=== PATIENT | female | born 1970 | race Caucasian/White ===

== ENCOUNTER → 2016-05-11 | Outpatient (CLI) | payer OTHER ==
[~2016-05-11] MED LIST: ACET325T96 PO; ALBINS/ INH; ALBU1NEB10 INH; ASPI-390 PO; CETI10TA84 PO; CHOL1TAB46 PO; DEXL60CA4 PO; GLC/500 PO; GLC500; HYDR-4079 PO; LANS30CA41 PO; LISI2.5T5 PO; LYSI100010; LYSI500T34 PO; METH4PAK PO; MULTTAB58 PO; NORT75CA4 PO; NRT/50 PO; PANT1TAB48 PO; RANI150C4 PO; RANI150T3 PO; RANI300C PO; SUMA1TAB PO; TOPI200T14 PO; TRAM-10 PO; VERA240T20 PO; VNTHFA/IN INH; [UNRECOGNIZED DRUG - CODE]
--- NOTE | 2016-05-11 14:25 | MAMMOGRAPHY REPORT ---
BILATERAL DIGITAL SCREENING MAMMOGRAM TOMOSYNTHESIS WITH CAD: 05/11/2016 CLINICAL HISTORY: Routine screening. Patient has no complaints. TECHNIQUE: Breast tomosynthesis in addition to standard 2D mammography was performed. Current study was also evaluated with a Computer Aided Detection (CAD) system. COMPARISON: Comparison is made to exams dated: 05/08/2015 mammogram, 04/30/2015 mammogram, 04/21/2014 mammogram, 01/24/2013 mammogram, and 08/25/2011 mammogram - [facility]. BREAST COMPOSITION: There are scattered areas of fibroglandular density in both breasts. FINDINGS: No suspicious masses, calcifications, or areas of architectural distortion are noted in e ither breast. There has been no significant interval change compared to prior exams. IMPRESSION: ACR BI-RADS CATEGORY 1: NEGATIVE There is no mammographic evidence of malignancy. A 1 year screening mammogram is recommended. The p atient will receive written notification of the results. Approximately 10% of breast cancers are not detected with mammography. A negative mammographic repor t should not delay biopsy if a clinically suggestive mass is present. Arianna Husain M.D. /:05/11/2016 11:48:18 Ordnance Handler: Cookie EVERETT(Olivia)(Isamar)([place]), [facility] letter sent: Normal 1/2 BI-RADS Code: ACR BI-RADS Category 1: Negative
== END | disposition home or self-care (01) ==
LOC: C.MAMM 10:23
PROVIDERS: ATTEND Obstetrics & Gynecology
DX: Z12.31 Encounter for screening mammogram for malignant neoplasm of breast (principal)

== ENCOUNTER → 2016-06-15 | Outpatient (CLI) | payer OTHER ==
--- NOTE | 2016-06-15 14:57 | DIAGNOSTIC IMAGING REPORT ---
CHEST 2 VIEWS ROUTINE CLINICAL HISTORY: R05 Cough COMPARISON STUDY: 04/21/2016 FINDINGS: The bones soft tissues and hemidiaphragms are normal. The cardiomediastinal silhouette is normal. The lungs are clear. The pulmonary vasculature is normal. IMPRESSION: Negative chest. Electronically signed by: Ignacio Abreu M.D. 06/15/2016 2:56 PM Dictated Date/Time: 06/15/2016 2:55 PM
== END | disposition home or self-care (01) ==
LOC: C.RAD1850 14:44
PROVIDERS: ATTEND Internal Medicine
DX: R05 Cough (principal)

== ENCOUNTER → 2016-09-14 | Outpatient (CLI) | payer OTHER ==
[2016-09-14 15:03] LABS: ALT/SGPT 18 U/L (12-78); AST/SGOT 8 U/L (15-37); BLOOD UREA NITROGEN 16 mg/dl (7-18); BUN/CREATININE RATIO 17.3 (10-20); CALCIUM 8.6 mg/dl (8.5-10.1); CARBON DIOXIDE 23 mmol/L (21-32); CHLORIDE 112 mmol/L (98-107); GLUCOSE 92 mg/dl (70-99); HDL CHOLESTEROL 68 mg/dl; SODIUM 145 mmol/L (136-145)
[2016-09-14 15:04] LABS: CHOLESTEROL 219 mg/dl (0-200); CHOLESTEROL/HDL RATIO 3.2; LDL CHOLESTEROL CALCULATED 136 mg/dl; TRIGLYCERIDES 75 mg/dl (0-150); VERY LOW DENSITY LIPOPROT CALC 15 mg/dl
[2016-09-15 06:09] LABS: ESTIMATED AVERAGE GLUCOSE 100 mg/dl; HA1C FLAG Normal (Normal)
== END | disposition home or self-care (01) ==
LOC: C.LAB 13:23
PROVIDERS: ATTEND Internal Medicine
DX: R73.01 Impaired fasting glucose (principal); E78.5 Hyperlipidemia, unspecified; I10 Essential (primary) hypertension; E55.9 Vitamin D deficiency, unspecified

== ENCOUNTER 2016-09-28 14:14 | Observation (INO) | payer OTHER ==
[~2016-09-28] VITALS: Ht 167.6 cm; Wt 115.3 kg
[~2016-09-28 14:14] MED LIST changes: -ALBINS/ INH; -CETI10TA84 PO; -CHOL1TAB46 PO; -DEXL60CA4 PO; -GLC/500 PO; -LANS30CA41 PO; -LISI2.5T5 PO; -LYSI500T34 PO; -NORT75CA4 PO; -RANI150C4 PO; -RANI300C PO; -SUMA1TAB PO; -TRAM-10 PO; -VERA240T20 PO; -VNTHFA/IN INH
[2016-09-28] MEDS ORDERED: CHOL1TAB46 PO (14:43)
[2016-09-28] MEDS ORDERED: VERA240T20 PO (14:43)
[2016-09-28] MEDS ORDERED: VNTHFA/IN INH (14:43)
[2016-09-28] MEDS ORDERED: LANS30CA41 PO (14:43)
[2016-09-28] MEDS ORDERED: LISI2.5T5 PO (14:43)
[2016-09-28] MEDS ORDERED: CETI10TA84 PO (14:43)
[2016-09-28] MEDS ORDERED: GLC/500 PO (14:43)
[2016-09-28] MEDS ORDERED: ALBINS/ INH (14:43)
[2016-09-28] MEDS ORDERED: LYSI500T34 PO (14:43)
[2016-09-28] MEDS ORDERED: TOPI200T14 PO (14:43)
[2016-09-28] MEDS ORDERED: ASPIRIN 81 MG CHEW PO STA (15:18)
[2016-09-28] MEDS ORDERED: SODIUM CHLORIDE 0.9% 1000ML 250 ML IV STA (15:18)
[2016-09-28] MEDS ORDERED: NITROGLYCERIN 0.4 MG SL PER TAB CHARGE SL STA (15:18)
[2016-09-28] MEDS ORDERED: SODIUM CHLORIDE 0.9% 1000ML 1,000 ML IV STA (15:18)
--- NOTE | 2016-09-28 15:33 | DIAGNOSTIC IMAGING REPORT ---
CHEST ONE VIEW PORTABLE CLINICAL HISTORY: Atypical chest pain. Hypertension. COMPARISON STUDY: 06/13/2016 FINDINGS: The cardiac and mediastinal contours are normal. There is no evidence of focal pulmonary consolidation. There is no evidence of failure. No pleural effusions are visualized.[ IMPRESSION: No active disease in the chest. Electronically signed by: Winston Cooper M.D. 09/28/2016 3:32 PM Dictated Date/Time: 09/28/2016 3:31 PM
[2016-09-28 15:40] LABS: POINT OF CARE TROPONIN I < 0.030 ng/ml (0-0.045)
[2016-09-28 15:49] LABS: INR 0.9 (0.9-1.1); PARTIAL THROMBOPLASTIN RATIO 1.1; PROTHROMBIN TIME (PATIENT) 9.8 SECONDS (9.0-12.0)
[2016-09-28 15:55] LABS: BASO % 0.2 %; BASO ABS # 0.01 K/uL (0-0.2); COMPLETE YES; EOS % 1.5 %; HEMATOCRIT 42.7 % (37-47); LYMPH % 25.2 %; LYMPH ABS # 1.34 K/uL (1.2-3.4); MEAN CELL VOLUME 90.5 fL (80-100); MEAN CORPUSCULAR HEMOGLOBIN 30.3 pg (25-34); MEAN CORPUSCULAR HGB CONC 33.5 g/dl (32-36); MEAN PLATELET VOLUME 10.8 fL (7.4-10.4); MONO % 5.8 %; NEUT % 67.3 %; PLATELET COUNT 252 K/uL (130-400); RED BLOOD COUNT 4.72 M/uL (4.2-5.4); WHITE BLOOD COUNT 5.31 K/uL (4.8-10.8)
--- NOTE | 2016-09-28 16:01 | EMERGENCY ROOM VISIT NOTE ---
History Report prepared by Kisha: Michael Oakley Under the Supervision of: Dr. Obie Schuster M.D. First contact with patient: 14:40 Chief Complaint: CHEST PAIN Stated Complaint: CHEST DISCOMFORT, SWEATING, HIGH BP, N History of Present Illness The patient is a 45 year old female who presents to the Emergency Room with complaints of a persistent headache starting last night. She woke up in the middle of the night with the headache. She has a history of a migraine headache. She tried Tylenol and Excedrin without relief. About 2 hours ago, the patient had an episode of diaphoresis. She has borderline diabetes. Her blood sugar level was 117. She checked her blood pressure and it was 130s systolic and 98 to 134 diastolic. She has a history of hypertension. Last night, she missed the dose for verapamil. The patient also currently complains of mid- chest pain. She describes it to be a squeezing pain which intermittently radiates to bilateral chest. She reports some shortness of breath. She has worsening chest pain with breathing, standing up, walking, and palpation. She does not have pain with lying down. At its worst, she reports a chest pain intensity of 7-8/10. She currently rates a pain intensity of 6/10. She is unsure about lower extremity pain/swelling. She denies any recent trauma or falls. Her mother from myocardial infarction. She has family history of heart disease. The patient does not smoke cigarettes. She also currently complains of nausea but denies vomiting. She denies any recent blood in stool, or any other complaints. She is not on any blood thinners. Source of History: patient, spouse/significant other Onset: last night Position: head Timing: other (persistent) Modifying Factors (Relieving): other (Tylenol and Excedrin without relief) Associated Symptoms: + diaphoresis, + chest pain, + SOB, + nausea, No vomiting Review of Systems See HPI for pertinent positives & negatives. A total of 10 systems reviewed and were otherwise negative. Past Medical & Surgical Medical Problems: (1) Diabetes (2) Hypertension Old medical records were reviewed. Nurse's notes were reviewed and I agree with. Family History FH: heart disease Social History Smoking Status: Never Smoker Alcohol Use: occasionally Marital Status: Occupation Status: other (Housewife) Current/Historical Medications Scheduled Albuterol Hfa (Ventolin Hfa), 2-4 PUFFS INH Q6H Albuterol Sulf (Proventil 0.083% 2.5MG/3ML), 2.5 MG INH QID Cetirizine (Zyrtec), 10 MG PO HS Cholecalciferol (Vitamin D3), 5,000 UNIT PO DAILY Lansoprazole (Prevacid), 30 MG PO BID Lisinopril (Lisinopril), 2.5 MG PO DAILY Lysine Hcl (L-Lysine), 500 MG PO DAILY Metformin Hcl (Glucophage), 500 MG PO BID Multiple Vitamin (Multivitamin), 1 TAB PO DAILY Nortriptyline HCl (Nortriptyline HCl), 50 MG PO HS Ranitidine Hcl (Zantac), 150 MG PO DAILY Topiramate (Topamax), 200 MG PO BID Verapamil Sust Rel (Calan Sr Ext Rel), 240 MG PO DAILY Miscellaneous Medications Acetaminophen Tab (Tylenol), 325 MG PO Nvajpcu-Whdvrmsgdoqxa-Nttjqnta (Excedrin Migraine) Sumatriptan-Naproxen Sodium (Treximet) Allergies Coded Allergies: Sulfa Drugs (Verified Allergy, Mild, 09/28/16) TONGUE PEELS Adhesives (Verified Allergy, Unknown, ., 09/28/16) Latex (Verified Allergy, Unknown, ., 09/28/16) Metoclopramide (Verified Adverse Reaction, Unknown, HIVES, 09/28/16) arthritis symptoms Physical Exam Vital Signs Date Time Temp Pulse Resp B/P (MAP) Pulse Ox O2 Delivery O2 Flow Rate FiO2 09/28/16 16:40 92 18 133/97 98 Room Air 09/28/16 15:44 95 20 126/100 95 Room Air 09/28/16 15:19 92 09/28/16 15:10 96 Room Air 09/28/16 14:17 36.3 91 18 160/123 96 Room Air Physical Exam General: Non-ill appearing, middle-aged female, in no acute distress. HEENT: Normal cephalic atraumatic. Pupils are equal round and reactive to light. Right eye will not cross the midline which she says is baseline. Oropharynx is pink with moist mucous membranes. No swelling of the mouth lips or tongue. Neck: Supple with a midline trachea. No meningeal signs or stiffness, no JVD or bruits. No Stridor. Chest: Clear to auscultation bilaterally. No wheezes or rhonchi. No increased work of breathing. Minimal tenderness to palpation. Heart: regular rate and rhythm. Abdomen: Soft nontender, nondistended without rebound guarding or rigidity. Extremities: No cyanosis clubbing or edema. No calf tenderness or assymetry Spine/Back. Non tender to palpation. No CVA tenderness Skin: Good turgor without rashes. Neurologic exam: Cranial nerves two through 12 are intact. Motor and sensation are intact and symmetrical throughout. Medical Decision & Procedures ER Provider Diagnostic Interpretation: X-ray results as stated below per interpretation by me and the radiologist: CHEST ONE VIEW PORTABLE CLINICAL HISTORY: Atypical chest pain. Hypertension. COMPARISON STUDY: 06/13/2016 FINDINGS: The cardiac and mediastinal contours are normal. There is no evidence of focal pulmonary consolidation. There is no evidence of failure. No pleural effusions are visualized.[ IMPRESSION: No active disease in the chest. Electronically signed by: Winston Cooper M.D. 09/28/2016 3:32 PM Dictated Date/Time: 09/28/2016 3:31 PM Laboratory Results 09/28/16 15:05 Red Blood Count 4.72, Mean Corpuscular Volume 90.5, Mean Corpuscular Hemoglobin 30.3, Mean Corpuscular Hemoglobin Concent 33.5, Mean Platelet Volume 10.8, Neutrophils (%) (Auto) 67.3, Lymphocytes (%) (Auto) 25.2, Monocytes (%) (Auto) 5.8, Eosinophils (%) (Auto) 1.5, Basophils (%) (Auto) 0.2, Neutrophils # (Auto) 3.57, Lymphocytes # (Auto) 1.34, Monocytes # (Auto) 0.31, Eosinophils # (Auto) 0.08, Basophils # (Auto) 0.01 09/28/16 15:05 Test 09/28/16 00:00 09/28/16 15:05 09/28/16 15:18 09/28/16 15:21 Urine Color YELLOW Urine Appearance CLEAR (CLEAR) Urine pH 7.0 (4.5-7.5) Urine Specific [place] 1.026 (1.000-1.030) Urine Protein NEG (NEG) Urine Glucose (UA) NEG (NEG) Urine Ketones NEG (NEG) Urine Occult Blood NEG (NEG) Urine Nitrite NEG (NEG) Urine Bilirubin NEG (NEG) Urine Urobilinogen NEG (NEG) Urine Leukocyte Esterase NEG (NEG) White Blood Count 5.31 K/uL (4.8-10.8) Red Blood Count 4.72 M/uL (4.2-5.4) Hemoglobin 14.3 g/dL (12.0-16.0) Hematocrit 42.7 % (37-47) Mean Corpuscular Volume 90.5 fL (80-100) Mean Corpuscular Hemoglobin 30.3 pg (25-34) Mean Corpuscular Hemoglobin Concent 33.5 g/dl (32-36) Platelet Count 252 K/uL (130-400) Mean Platelet Volume 10.8 fL (7.4-10.4) Neutrophils (%) (Auto) 67.3 % Lymphocytes (%) (Auto) 25.2 % Monocytes (%) (Auto) 5.8 % Eosinophils (%) (Auto) 1.5 % Basophils (%) (Auto) 0.2 % Neutrophils # (Auto) 3.57 K/uL (1.4-6.5) Lymphocytes # (Auto) 1.34 K/uL (1.2-3.4) Monocytes # (Auto) 0.31 K/uL (0.11-0.59) Eosinophils # (Auto) 0.08 K/uL (0-0.5) Basophils # (Auto) 0.01 K/uL (0-0.2) RDW Standard Deviation 43.0 fL (36.4-46.3) RDW Coefficient of Variation 13.0 % (11.5-14.5) Immature Granulocyte % (Auto) 0.0 % Immature Granulocyte # (Auto) 0.00 K/uL (0.00-0.02) Prothrombin Time 9.8 SECONDS (9.0-12.0) Prothromb Time International Ratio 0.9 (0.9-1.1) Activated Partial Thromboplast Time 27.8 SECONDS (21.0-31.0) Partial Thromboplastin Ratio 1.1 Anion Gap 6.0 mmol/L (3-11) Est Creatinine Clear Calc Drug Dose 108.9 ml/min Estimated GFR () 97.3 Estimated GFR (Non- 83.9 BUN/Creatinine Ratio 13.9 (10-20) Calcium Level 8.4 mg/dl (8.5-10.1) Total Bilirubin 0.3 mg/dl (0.2-1) Direct Bilirubin < 0.1 mg/dl (0-0.2) Aspartate Amino Transf (AST/SGOT) 10 U/L (15-37) Alanine Aminotransferase (ALT/SGPT) 19 U/L (12-78) Alkaline Phosphatase 61 U/L (45-117) Total Creatine Kinase 84 U/L (26-192) Creatine Kinase MB 0.9 ng/ml (0.5-3.6) Total Protein 7.0 gm/dl (6.4-8.2) Albumin 3.7 gm/dl (3.4-5.0) Lipase 197 U/L (73-393) Creatine Kinase MB Ratio (0-3.0) Bedside D-Dimer 173 ng/mlFEU (0-450) Bedside Troponin I < 0.030 ng/ml (0-0.045) Laboratory studies as stated above per my review. Medications Administered Medications (Trade) Dose Ordered Sig/Chalo Route Start Time Stop Time Status Last Admin Dose Admin Sodium Chloride 250 ml @ 999 mls/hr Q16M STAT IV 09/28/16 15:18 09/28/16 15:33 DC 09/28/16 15:42 999 MLS/HR Sodium Chloride 1,000 ml @ 100 mls/hr Q10H STAT IV 09/28/16 15:18 09/28/16 18:58 DC 09/28/16 15:42 100 MLS/HR Aspirin (Aspirin Chew) 324 mg NOW STAT PO 09/28/16 15:18 09/28/16 15:21 DC 09/28/16 15:42 324 MG Nitroglycerin (Nitrostat Tab) 0.4 mg NOW STAT SL 09/28/16 15:18 09/28/16 15:21 DC 09/28/16 15:43 0.4 MG Morphine Sulfate (MoRPHine SULFATE INJ) 2 mg NOW STAT IV 09/28/16 16:16 09/28/16 16:17 DC 09/28/16 16:35 2 MG Ondansetron HCl (Zofran Inj) 4 mg NOW STAT IV 09/28/16 16:16 09/28/16 16:17 DC 09/28/16 16:35 4 MG ECG Indication: chest pain Rate (beats per minute): 94 Rhythm: normal sinus Findings: no acute ischemic change, no ectopy Comparison ECG Date: no prior available ED Course 1440: Past medical records reviewed. The patient was evaluated in room B07, and a complete history and physical examination were performed. 1518: Nitroglycerin 0.4 mg SL, Aspirin 324 mg PO, Sodium Chloride 1000 ml @ 100 mls/hr IV, Sodium Chloride 250 ml @ 999 mls/hr IV 1616: Zofran Inj 4 mg IV, Morphine Sulfate 2 mg IV. I reevaluated the patient. Her pain has improved but she is now having a migraine headache. I discussed the results and treatment plan with the patient. She verbalized agreement of the treatment plan. The patient will be evaluated for further management. 1640: I discussed the patient's case with Dr. Ordaz, from [facility]. Medical Decision Differential diagnosis includes but is not limited to acute coronary syndrome, arrhythmia, anxiety, hypertensive emergency, PE, electrolyte or metabolic abnormalities. Blood pressure Screening: Patient was found to have an elevated blood pressure and was admitted to the hospital and will have further treatment. Medication Reconciliation: I attest that I have personally reviewed the patient' s current medication list. This patient comes in as described above. She is placed in room B7. She comes in after having some chest pressure she also headache last night she forgot to take her blood pressure medication she has no known cardiac history however she has a strong family history as well as has hypertension and diabetes. IV access was established she was given aspirin 324 mg chewable EKG does not suggest acute cord syndrome or arrhythmia. She is no acute electrolyte or metabolic abnormalities her troponin is not elevated initially her symptoms would be atypical for PE and her d-dimer is with was within normal limits. She was found to have some moderate hypertensive it as well. She was given nitroglycerin and this seemed to help the chest pain somewhat however she started having more of a migraine. She also has some nausea and was given Zofran 4 mg IV and morphine 2 mg IV. I do think she needs to be observed to rule out cardiac disease and further treatment and evaluation. She was happy with the plan and will be admitted for these measures. Consults Time Called: 1635 Consulting Physician: Dr. Ordaz, from [facility] Returned Call: 1640 I discussed the patient's case with Dr. Ordaz, from [facility]. Impression Primary Impression: Acute coronary syndrome Additional Impressions: Precordial chest pain Headache Hypertension Scribe Attestation The scribe's documentation has been prepared under my direction and personally reviewed by me in its entirety. I confirm that the note above accurately reflects all work, treatment, procedures, and medical decision making performed by me. Departure Information Dispostion Being Evaluated By Hospitalist Referrals Pro,Brandon White M.D. (PCP) Patient Instructions My [facility] Problem Qualifiers
[2016-09-28 16:02] LABS: BLOOD UREA NITROGEN 12 mg/dl (7-18); BUN/CREATININE RATIO 13.9 (10-20); CALCIUM 8.4 mg/dl (8.5-10.1); CARBON DIOXIDE 24 mmol/L (21-32); CHLORIDE 112 mmol/L (98-107); CREATININE 0.84 mg/dl (0.60-1.20); GLUCOSE 91 mg/dl (70-99); POTASSIUM 4.3 mmol/L (3.5-5.1); SODIUM 142 mmol/L (136-145)
[2016-09-28 16:08] LABS: ALKALINE PHOSPHATASE 61 U/L (45-117); ALT/SGPT 19 U/L (12-78); AST/SGOT 10 U/L (15-37); CKMB/CK RATIO 1.1 (0-3.0)
[2016-09-28] MEDS ORDERED: MoRPHine SULFATE 2 MG/ML CARP IV STA (16:16)
[2016-09-28] MEDS ORDERED: ONDANSETRON INJ 2 MG/ML 2 ML VIAL IV STA (16:16)
[2016-09-28] MEDS ORDERED: GLUCOSE 10 TABS/TUBE PO PRN (17:15)
[2016-09-28] MEDS ORDERED: MAGNESIUM HYDROXIDE SUSP 30 ML UDC PO PRN (17:15)
[2016-09-28] MEDS ORDERED: DEXTROSE 50% 50 ML SYR IV PRN (17:15)
[2016-09-28] MEDS ORDERED: GLUCAGON FOR INJ 1 MG VIAL SQ PRN (17:15)
[2016-09-28] MEDS ORDERED: POLYETHYLENE (MIRALAX) 17 GM PACK PO PRN (17:15)
[2016-09-28] MEDS ORDERED: GLUCOSE 40% GEL 15 GM TUBE PO PRN (17:15)
[2016-09-28] MEDS ORDERED: ALUMINUM/MAGNESIUM/SIMETH (MAALOX MAX) 30 ML UDC PO PRN (17:15)
[2016-09-28] MEDS ORDERED: NITROGLYCERIN 0.4 MG SL PER TAB CHARGE SL PRN (17:15)
[2016-09-28] MEDS ORDERED: ONDANSETRON INJ 2 MG/ML 2 ML VIAL IV PRN (17:15)
[2016-09-28] MEDS ORDERED: ALBUTEROL HFA 8 GM INHALER INH PRN (17:15)
[2016-09-28 18:52] VITALS: BP 144/79; PULSE 94; TEMP 36.3; O2SAT 96; Ht 167.6 cm; Wt 115.3 kg
--- NOTE | 2016-09-28 19:20 | History and Physical ---
History & Physical Date & Time of Service: Sep 28, 2016 at 18:50 Chief Complaint: Precordial Chest Pain Primary Care Physician: Brandon Lawrence M.D. History of Present Illness Source: patient, clinic records, hospital records This is a 45 y/o female with a history of HTN, HLD, DM II, migraines, and GERD who presented to the ED on 09/28 with headache and chest pain. Patient woke up early in the morning with a severe headache. She does have a history of migraines. She took 3 Tylenol 325 mg without any relief, followed by 3 Excedrin Migraine tabs a few hours later, again without relief. She also took a Treximet tab without relief. Around noon, the patient developed central chest tightness, diaphoresis, shortness of breath and nausea. The patient checked her blood sugar this morning. She then checked her blood pressures over the course of the next hour which were reasonable. She called her primary care provider's office who advised her to go to ER for further evaluation. The patient does have strong family history for heart attacks. Currently the patient states that her chest discomfort 3/10 tightness, although it is now radiating to her left axilla region and upper arm, which it did not do initially. Her axilla/arm pain is actually rated worse at a 6-7/10. Her diaphoresis has resolved, but she still feels somewhat short of breath and nauseous. The patient does admit to missing her verapamil dose last night. The patient denies fevers, chills, palpitations, claudication, cough, wheezing, vomiting, abdominal pain, dysuria, hematuria, urinary retention, paralysis, weakness, numbness and tingling. Past Medical/Surgical History Medical Problems: (1) Diabetes mellitus type 2 Status: Chronic (2) Hypertension Status: Chronic HLD GERD Migraines Family History Cancer (breast, colon, skin, ovarian, pancreatic) Diabetes mellitus FH: heart disease Hypertension Myocardial infarction Social History Smoking Status: Never Smoker Smokeless Tobacco Use: No Alcohol Use: occasionally Drug Use: none Marital Status: Housing status: lives with family Occupational Status: other (Housewife) Immunizations History of Influenza Vaccine: Unknown History of Tetanus Vaccine?: Unknown History of Pneumococcal: Unknown History of Hepatitis B Vaccine: Unknown Multi-Drug Resistant Organisms History of MDRO: No Allergies Coded Allergies: Sulfa Drugs (Verified Allergy, Mild, 09/28/16) TONGUE PEELS Adhesives (Verified Allergy, Unknown, ., 09/28/16) Latex (Verified Allergy, Unknown, ., 09/28/16) Metoclopramide (Verified Adverse Reaction, Unknown, HIVES, 09/28/16) arthritis symptoms Home Medications Scheduled Albuterol Hfa (Ventolin Hfa), 2-4 PUFFS INH Q6H Albuterol Sulf (Proventil 0.083% 2.5MG/3ML), 2.5 MG INH QID Cetirizine (Zyrtec), 10 MG PO HS Cholecalciferol (Vitamin D3), 5,000 UNIT PO DAILY Lansoprazole (Prevacid), 30 MG PO BID Lisinopril (Lisinopril), 2.5 MG PO DAILY Lysine Hcl (L-Lysine), 500 MG PO DAILY Metformin Hcl (Glucophage), 500 MG PO BID Multiple Vitamin (Multivitamin), 1 TAB PO DAILY Nortriptyline HCl (Nortriptyline HCl), 50 MG PO HS Ranitidine Hcl (Zantac), 150 MG PO DAILY Topiramate (Topamax), 200 MG PO BID Verapamil Sust Rel (Calan Sr Ext Rel), 240 MG PO DAILY Miscellaneous Medications Acetaminophen Tab (Tylenol), 325 MG PO Mkspfgw-Sdmnrhqfrhxoj-Jhtlxeqi (Excedrin Migraine) Sumatriptan-Naproxen Sodium (Treximet) Review of Systems Constitutional: + sweats, + problem reported (headache), No fever, No chills Eyes: No worsening of vision, No eye pain, No diplopia ENT: No hearing loss, No sore throat, No trouble swallowing Respiratory: + shortness of breath, No cough, No wheezing Cardiovascular: + chest pain, No claudication, No palpitations Abdomen: + nausea, No pain, No vomiting Musculoskeletal: No joint pain, No muscle pain, No calf pain Genitourinary - Female: No dysuria, No urinary retention, No hematuria Neurologic: No paralysis, No weakness, No numbness/tingling Integumentary: No rash, No itch, No color change Physical Exam Vital Signs Date Time Temp Pulse Resp B/P (MAP) Pulse Ox O2 Delivery O2 Flow Rate FiO2 09/28/16 18:13 90 18 130/95 96 09/28/16 16:40 92 18 133/97 98 Room Air 09/28/16 15:44 95 20 126/100 95 Room Air 09/28/16 15:19 92 09/28/16 15:10 96 Room Air 09/28/16 14:17 36.3 91 18 160/123 96 Room Air General appearance: +Morbidly obese. Well-developed, well-nourished, no apparent distress Head: Normocephalic, atraumatic Eyes: +Right lazy eye. Right eye cannot move laterally to the right. Normal inspection, PERRL ENT: Normal ENT inspection, hearing grossly normal, pharynx normal Neck: Supple, no JVD, trachea midline Respiratory/Chest: +Central and left chest pain reproducible. Lungs clear to auscultation, normal breath sounds, no respiratory distress Cardiovascular: Regular rate & rhythm, no gallop, no murmur Abdomen/GI: Normal bowel sounds, non-tender, soft Extremities/Musculoskeletal: +Left axilla and left upper arm TTP. Normal inspection, no calf tenderness, no pedal edema Neurological/Psych: Alert, normal mood/affect, oriented x 3 Skin: Normal color, warm/dry, no rash Diagnostics Laboratory Results Results Past 24 Hours Test 09/28/16 15:05 09/28/16 15:18 09/28/16 15:21 Range/Units White Blood Count 5.31 4.8-10.8 K/uL Red Blood Count 4.72 4.2-5.4 M/uL Hemoglobin 14.3 12.0-16.0 g/dL Hematocrit 42.7 37-47 % Mean Corpuscular Volume 90.5 80-100 fL Mean Corpuscular Hemoglobin 30.3 25-34 pg Mean Corpuscular Hemoglobin Concent 33.5 32-36 g/dl Platelet Count 252 130-400 K/uL Mean Platelet Volume 10.8 7.4-10.4 fL Neutrophils (%) (Auto) 67.3 % Lymphocytes (%) (Auto) 25.2 % Monocytes (%) (Auto) 5.8 % Eosinophils (%) (Auto) 1.5 % Basophils (%) (Auto) 0.2 % Neutrophils # (Auto) 3.57 1.4-6.5 K/uL Lymphocytes # (Auto) 1.34 1.2-3.4 K/uL Monocytes # (Auto) 0.31 0.11-0.59 K/uL Eosinophils # (Auto) 0.08 0-0.5 K/uL Basophils # (Auto) 0.01 0-0.2 K/uL RDW Standard Deviation 43.0 36.4-46.3 fL RDW Coefficient of Variation 13.0 11.5-14.5 % Immature Granulocyte % (Auto) 0.0 % Immature Granulocyte # (Auto) 0.00 0.00-0.02 K/uL Prothrombin Time 9.8 9.0-12.0 SECONDS Prothromb Time International Ratio 0.9 0.9-1.1 Activated Partial Thromboplast Time 27.8 21.0-31.0 SECONDS Partial Thromboplastin Ratio 1.1 Sodium Level 142 136-145 mmol/L Potassium Level 4.3 3.5-5.1 mmol/L Chloride Level 112 98-107 mmol/L Carbon Dioxide Level 24 21-32 mmol/L Anion Gap 6.0 3-11 mmol/L Blood Urea Nitrogen 12 7-18 mg/dl Creatinine 0.84 0.60-1.20 mg/dl Est Creatinine Clear Calc Drug Dose 108.9 ml/min Estimated GFR () 97.3 Estimated GFR (Non- 83.9 BUN/Creatinine Ratio 13.9 10-20 Random Glucose 91 70-99 mg/dl Calcium Level 8.4 8.5-10.1 mg/dl Total Bilirubin 0.3 0.2-1 mg/dl Direct Bilirubin < 0.1 0-0.2 mg/dl Aspartate Amino Transf (AST/SGOT) 10 15-37 U/L Alanine Aminotransferase (ALT/SGPT) 19 12-78 U/L Alkaline Phosphatase 61 45-117 U/L Total Creatine Kinase 84 26-192 U/L Creatine Kinase MB 0.9 0.5-3.6 ng/ml Creatine Kinase MB Ratio 1.1 0-3.0 Total Protein 7.0 6.4-8.2 gm/dl Albumin 3.7 3.4-5.0 gm/dl Lipase 197 73-393 U/L Bedside D-Dimer 173 0-450 ng/mlFEU Bedside Troponin I < 0.030 0-0.045 ng/ml Diagnostic Radiology Reviewed the following studies and agree with interpretation as follows: Patient Name: JESSIE VELÁSQUEZ Unit Number: [id number] Dictated: 09/28/16 153 Transcribed: 09/28/16 153 ARG Printed Date/Time: [~ rep prt dt]/[~ rep prt tm] [~ rep ct labl] - [~ rep ct ivnm] [facility] [place] [address] Dictated: 09/28/16 153 Transcribed: 09/28/16 153 ARG Printed Date/Time: [~ rep prt dt]/[~ rep prt tm] [~ rep ct labl] - [~ rep ct ivnm] Patient: JESSIE VELÁSQUEZ Address1: [address] [facility] Rec: [id number] Address2: [facility] [address] Acct ID: [id number] [facility] Zip: [place] [address] Date: 1970 Sex: F Room/Bed: Ref Phy: Anam Lee D.O. SC: SEMAJ Att Phy: Report #: [id number] Alesha Phy: Brandon Lawrence M.D. Test: CXR1P Admit Phy: Attorney: CHRISTAL Interpreting Phy: Winston Cooper M.D. Diagnosis: CHEST DISCOMFORT, SWEATING, HIGH BP, N Ordering Phy: Obie Schuster M.D. Service Date: 09/28/16 Admit Date: 09/28/16 MNE: [id number] CONF: DICTATED BY: Winston Cooper M.D.]] CC: Anam Lee D.O. Newcomb, Brian D., M.D. Pro, Jeffrey W., M.D. Endcc: [~ rep ct add3]] CHEST ONE VIEW PORTABLE CLINICAL HISTORY: Atypical chest pain. Hypertension. COMPARISON STUDY: 06/13/2016 FINDINGS: The cardiac and mediastinal contours are normal. There is no evidence of focal pulmonary consolidation. There is no evidence of failure. No pleural effusions are visualized.[ IMPRESSION: No active disease in the chest. Electronically signed by: Winston Cooper M.D. 09/28/2016 3:32 PM Dictated Date/Time: 09/28/2016 3:31 PM The status of this report is Signed. Draft = Not yet reviewed or approved by Radiologist. Signed = Reviewed and approved by Radiologist. <AttendingPhy></AttendingPhy> <FamilyPhy>Jesus, Anam Joshi D.O.</FamilyPhy> < PrimaryPhy>Brandon Lawrence M.D.</PrimaryPhy> <UnitNumber>[id number]</UnitNumber > <VisitNumber>[id number]</VisitNumber> <PatientName>JESSIE VELÁSQUEZ</PatientName > <DateOfBirth>1970</DateOfBirth> <Location>C.EDB</Location> <ServiceDate> 09/28/16</ServiceDate> <MNE>ESINDI</MNE> <OrderingPhy>Obie Schuster M.D.</ OrderingPhy> <OrderingPhyMNE>f rep ord dr fierro</OrderingPhyMNE> <DictatingPhyMNE> f rep dict dr fierro</DictatingPhyMNE> <CCListMNE>f rep ct radhae</CCListMNE> < AdmittingPhyMNE>f pt admit dr fierro</AdmittingPhyMNE> <AttendingPhyMNE>f pt attend dr fierro</AttendingPhyMNE> <ConsultingPhyMNE>f pt consult dr fierro</ConsultingPhyMNE> <FamilyPhyMNE>f pt fam dr fierro</FamilyPhyMNE> <OtherPhyMNE>f pt other dr fierro</OtherPhyMNE> < PrimaryPhyMNE>f pt prim care dr fierro</PrimaryPhyMNE> <ReferringPhyMNE>f pt referring dr fierro</ReferringPhyMNE> EKG Reviewed EKG and agree with interpretation as follows: 94 bpm, NSR Impression Assessment and Plan 45 y/o female with a history of HTN, HLD, DM II, migraines, and GERD who presented to the ED on 09/28 with headache and chest pain. Pt developed diaphoresis, mild SOB, and nausea with the chest pain, prompting her to come to the ED. EKG did not show any ischemic changes. Cardiac enzymes negative x 1. D-dimer negative. CXR no acute disease. Chest pain -Admit to telemetry for observation -Trend cardiac enzymes q8h x 3 -Obtain echocardiogram -EKG prn chest pain and q am HTN--stable -Continue verapamil 240 mg PO qd and lisinopril 2.5 mg PO qd Diabetes mellitus type 2--last HgbA1c checked 09/14/16 was 5.1 -Hold metformin -Insulin sliding scale -Check BSGs q ac and qhs Migraines--pt states she has severe headaches every day, follows with Dr. Frank -Continue topiramate 200 mg PO BID, nortriptyline 50 mg PO qd GERD -Continue Zantac 150 mg PO qhs -Convert lansoprazole to pantoprazole 40 mg PO qam DVT prophylaxis -Enoxaparin 40 mg SC q24h -LINH Duvall Code Status -Level I, FULL RESUSCITATION STATUS Level of Care Telemetry Resuscitation Status FULL RESUSCITATION VTE Prophylaxis VTE Risk Assessment Done? Y/N: Yes Risk Level: Moderate Given or contraindicated: Enoxaparin (Lovenox)SQ, T.E.D. Stockings, SCD's Assessment and Plan Attending Addendum: I have physically seen and examined this patient, directed their medical care, supervised the Physician Construction Superintendent's activity, and agree with the H&P as noted above, with the following changes: NONE.
[2016-09-28 20:09] VITALS: O2SAT 96
[2016-09-28 20:20] VITALS: PULSE 94; O2SAT 98
[2016-09-28] MEDS: ALBUTEROL 0.083% NEBU SOLN 3 ML VIAL INH SCH (20:20)
[2016-09-28 20:43] LABS: URINE APPEARANCE CLEAR (CLEAR); URINE BILIRUBIN NEG (NEG); URINE COLOR YELLOW; URINE NITRITE NEG (NEG); URINE SPECIFIC GRAVITY 1.026 (1.000-1.030); UROBILINOGEN NEG (NEG)
[2016-09-28] MEDS ORDERED: IV FLUIDS COMPLETED PRN (20:45)
[2016-09-28 20:46] LABS: MANUAL MICROSCOPIC REQUIRED? NO; REVIEW REQ? NO
[2016-09-28] MEDS: INSULIN ASPART 100 UNITS/ML 3 ML PEN SC SCH (20:57)
[2016-09-28] MEDS: TOPIRAMATE 100 MG TAB PO SCH (20:58)
[2016-09-28] MEDS ORDERED: NORTRIPTYLINE HCL 25 MG CAP PO SCH (21:00)
[2016-09-28] MEDS ORDERED: CETIRIZINE HCL 10 MG TAB PO SCH (21:00)
[2016-09-28] MEDS ORDERED: ENOXAPARIN 40 MG/0.4 ML SYR SC SCH (21:00)
[2016-09-28 23:37] LABS: CKMB/CK RATIO 0.9 (0-3.0)
[2016-09-28 23:49] VITALS: BP 127/81; PULSE 95; TEMP 36.8; O2SAT 98
[2016-09-29] MEDS: ACETAMINOPHEN 325 MG TAB PO PRN ×2 (01:18→08:30)
[2016-09-29 04:00] VITALS: BP 136/70; PULSE 92; TEMP 36.6; O2SAT 95
[2016-09-29] MEDS: INSULIN ASPART 100 UNITS/ML 3 ML PEN SC SCH ×2 (07:00→11:00)
[2016-09-29 07:13] VITALS: PULSE 84; O2SAT 98
[2016-09-29] MEDS: TOPIRAMATE 100 MG TAB PO SCH (07:29)
[2016-09-29 07:44] LABS: HEMATOCRIT 39.9 % (37-47); MEAN CELL VOLUME 91.3 fL (80-100); MEAN CORPUSCULAR HGB CONC 32.8 g/dl (32-36); MEAN PLATELET VOLUME 10.3 fL (7.4-10.4); PLATELET COUNT 226 K/uL (130-400); RED BLOOD COUNT 4.37 M/uL (4.2-5.4); WHITE BLOOD COUNT 5.68 K/uL (4.8-10.8)
[2016-09-29] MEDS: ALBUTEROL 0.083% NEBU SOLN 3 ML VIAL INH SCH ×2 (07:51→11:23)
[2016-09-29 07:57] VITALS: BP 144/88; PULSE 98; TEMP 36.4; O2SAT 98
[2016-09-29 08:00] VITALS: O2SAT 98
--- NOTE | 2016-09-29 08:01 | Hospitalist Progress Note ---
Hospitalist Progress Note Date of Service Sep 29, 2016. (Lala Madrigal PA-C) Subjective Pt evaluation today including: conversation w/ patient, physical exam, chart review, lab review, review of studies Pain: Headache, severe PO Intake: Good Voiding: no voiding problems The patient was seen and examined this morning. Pt reports her headache is frontal, and extends about half way back to her scalp, it is affecting her eyesite in the right, and she is having some twitching under her left eye. She reports having some left sided shoulder pain which is a 4/10 vs a 7/10 yesterday , so it is improved. At home she uses tylenol for pain relief, and takes a total of 2,000mg at a time, pt reports she has spoken with her neurologist about this, and that she's aware 4g is the max daily dose of tylenol. She no longer uses any nsaids due to hx of gastritis and gastric ulcers seen on EGD. She denies feeling chest pain, palpitations flutter, sob, dyspnea on exertion or at rest. Additional Comments: 6 point ROS reviewed and otherwise negative, see HPI. (Lala Madrigal PA-C) Objective Vital Signs Date Time Temp Pulse Resp B/P (MAP) Pulse Ox O2 Delivery O2 Flow Rate FiO2 09/29/16 07:13 84 16 98 Room Air 09/29/16 04:00 36.6 92 18 136/70 (92) 95 Room Air 09/29/16 04:00 Room Air 09/29/16 00:00 Room Air 09/28/16 23:49 36.8 95 18 127/81 (96) 98 Room Air 09/28/16 20:20 94 16 98 Room Air 09/28/16 20:09 96 Room Air 09/28/16 18:52 36.3 94 18 144/79 96 Room Air 09/28/16 18:13 90 18 130/95 96 09/28/16 16:40 92 18 133/97 98 Room Air 09/28/16 15:44 95 20 126/100 95 Room Air 09/28/16 15:19 92 09/28/16 15:10 96 Room Air 09/28/16 14:17 36.3 91 18 160/123 96 Room Air (Lala Madrigal PA-C) Physical Exam General Appearance: WD/WN, no apparent distress, + obese Eyes: normal inspection, PERRL, EOMI ENT: hearing grossly normal, pharynx normal Neck: supple, no JVD, + pertinent finding (tenderness in superior trapezius in the left) Respiratory/Chest: lungs clear, no respiratory distress, no accessory muscle use, + pertinent finding (+chest tenderness with palpation over ant L wall) Cardiovascular: regular rate, rhythm, no JVD, no murmur Abdomen: normal bowel sounds, non tender, soft, no organomegaly Extremities: normal range of motion, no pedal edema, no calf tenderness Neurologic/Psychiatric: alert, normal mood/affect, oriented x 3 Skin: normal color, warm/dry (Lala Madrigal PA-C) Laboratory Results Last 24 Hours Test 09/28/16 15:05 09/28/16 15:18 09/28/16 15:21 09/28/16 20:38 White Blood Count 5.31 K/uL Red Blood Count 4.72 M/uL Hemoglobin 14.3 g/dL Hematocrit 42.7 % Mean Corpuscular Volume 90.5 fL Mean Corpuscular Hemoglobin 30.3 pg Mean Corpuscular Hemoglobin Concent 33.5 g/dl Platelet Count 252 K/uL Mean Platelet Volume 10.8 fL Neutrophils (%) (Auto) 67.3 % Lymphocytes (%) (Auto) 25.2 % Monocytes (%) (Auto) 5.8 % Eosinophils (%) (Auto) 1.5 % Basophils (%) (Auto) 0.2 % Neutrophils # (Auto) 3.57 K/uL Lymphocytes # (Auto) 1.34 K/uL Monocytes # (Auto) 0.31 K/uL Eosinophils # (Auto) 0.08 K/uL Basophils # (Auto) 0.01 K/uL RDW Standard Deviation 43.0 fL RDW Coefficient of Variation 13.0 % Immature Granulocyte % (Auto) 0.0 % Immature Granulocyte # (Auto) 0.00 K/uL Prothrombin Time 9.8 SECONDS Prothromb Time International Ratio 0.9 Activated Partial Thromboplast Time 27.8 SECONDS Partial Thromboplastin Ratio 1.1 Sodium Level 142 mmol/L Potassium Level 4.3 mmol/L Chloride Level 112 mmol/L Carbon Dioxide Level 24 mmol/L Anion Gap 6.0 mmol/L Blood Urea Nitrogen 12 mg/dl Creatinine 0.84 mg/dl Est Creatinine Clear Calc Drug Dose 108.9 ml/min Estimated GFR () 97.3 Estimated GFR (Non- 83.9 BUN/Creatinine Ratio 13.9 Random Glucose 91 mg/dl Calcium Level 8.4 mg/dl Total Bilirubin 0.3 mg/dl Direct Bilirubin < 0.1 mg/dl Aspartate Amino Transf (AST/SGOT) 10 U/L Alanine Aminotransferase (ALT/SGPT) 19 U/L Alkaline Phosphatase 61 U/L Total Creatine Kinase 84 U/L Creatine Kinase MB 0.9 ng/ml Creatine Kinase MB Ratio 1.1 Total Protein 7.0 gm/dl Albumin 3.7 gm/dl Lipase 197 U/L Bedside D-Dimer 173 ng/mlFEU Bedside Troponin I < 0.030 ng/ml Bedside Glucose 86 mg/dl Test 09/28/16 23:10 09/29/16 06:38 09/29/16 07:00 09/29/16 07:15 Total Creatine Kinase 68 U/L Creatine Kinase MB 0.6 ng/ml Creatine Kinase MB Ratio 0.9 Troponin I < 0.015 ng/ml Bedside Glucose 94 mg/dl White Blood Count 5.68 K/uL Red Blood Count 4.37 M/uL Hemoglobin 13.1 g/dL Hematocrit 39.9 % Mean Corpuscular Volume 91.3 fL Mean Corpuscular Hemoglobin 30.0 pg Mean Corpuscular Hemoglobin Concent 32.8 g/dl RDW Standard Deviation 44.1 fL RDW Coefficient of Variation 13.3 % Platelet Count 226 K/uL Mean Platelet Volume 10.3 fL (Lala Madrigal, HARSH) Assessment and Plan 45 y/o female with a history of HTN, HLD, DM II, migraines, and GERD who presented to the ED on 09/28 with headache and chest pain. Pt developed diaphoresis, mild SOB, and nausea with the chest pain, prompting her to come to the ED. EKG did not show any ischemic changes. Cardiac enzymes negative x 1. D-dimer negative. CXR no acute disease. Chest pain - Improved today, likely musculoskeletal in nature with negative CE. - Trend cardiac enzymes negative x 2 - Await read of 2D echo - EKG prn chest pain and q am - reviewed, in NSR HTN--stable - Continue verapamil 240 mg PO qd and lisinopril 2.5 mg PO qd Diabetes mellitus type 2--last HgbA1c checked 09/14/16 was 5.1 - Hold metformin - ISS with accuchecks achs Migraines - pt states she has severe headaches every day, follows with Dr. Frank - Continue topiramate 200 mg PO BID, nortriptyline 50 mg PO qd - Pt cautioned on max dosage of Tylenol. She can take an aleve or NSAID 1-2 times a week with food if tylenol does not work w/ hx of gastritis on EGD. I asked her to discuss this with her PCP and Dr. Frank. - Will order imitrex 50 mg tab x1 and see if this helps this morning. - Encouraged stretching her muscles, exercise, and yoga to help alleviate neck/ shoulder pain. 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 She is also caring for her father who has MS. She reports having a good support system with brother and , and does not feel counseling would benefit her at this time. GERD -Continue Zantac 150 mg PO qhs -Convert lansoprazole to pantoprazole 40 mg PO qam DVT pppx: Lovenox, Teds, SCDs Code Status: Full Code Disposition: From home, likely can go home later today pending echo report. Will need f/u with PCP within a week and neurology within 2 weeks. (Lala Madrigal, PAMatteoC) Reviewed: Pt Seen/Exam by Me (Mary Major, ) History Pt is feeling improved. Still with migraine. Chest pain is better. Denies known trauma. Tolerating PO well. Agree with HPI/ROS as noted. (Mary Major, DO) General Appearance: WD/WN, no apparent distress Ears, Nose, Throat: hearing grossly normal Respiratory: normal breath sounds, no respiratory distress, other (chest wall TTP over L upper thoracic cage moving into shoulder) Cardiovascular: normal peripheral pulses, regular rate, rhythm Gastrointestinal: non tender, soft Extremities: non-tender, no pedal edema Neurologic/Psychiatric: alert, normal mood/affect Skin Characteristics: normal color, warm/dry (aMry Major, DO) Assessment/Plan Agree with plan as outlined above Chest pain: cards w/u neg Reproducible, likely MSK/muscle strain Migraine: usual care with abortive Discussed acupuncture (Mary Major, DO)
[2016-09-29 08:49] LABS: BLOOD UREA NITROGEN 12 mg/dl (7-18); BUN/CREATININE RATIO 13.2 (10-20); CARBON DIOXIDE 25 mmol/L (21-32); CHLORIDE 109 mmol/L (98-107); CKMB/CK RATIO 1.6 (0-3.0); CREATININE 0.93 mg/dl (0.60-1.20); GLUCOSE 92 mg/dl (70-99); POTASSIUM 3.5 mmol/L (3.5-5.1); SODIUM 142 mmol/L (136-145)
[2016-09-29 08:57] LABS: CALCIUM 8.6 mg/dl (8.5-10.1)
[2016-09-29] MEDS ORDERED: VERAPAMIL HCL 240 MG TABCR PO SCH (09:00)
[2016-09-29] MEDS ORDERED: LISINOPRIL 2.5 MG TAB PO SCH (09:00)
[2016-09-29] MEDS ORDERED: PANTOprazole SOD 40 MG TAB PO SCH (09:00)
[2016-09-29] MEDS ORDERED: RANITIDINE HCL 150 MG TAB PO SCH (09:00)
[2016-09-29] MEDS ORDERED: MULTIVITAMIN TAB PO SCH (09:00)
--- NOTE | 2016-09-29 09:58 | ECHOCARDIOGRAM REPORT ---
*NOTICE TO RECEIVING [employer] This information is strictly Confidential and protected under [place] law. [place] law prohibits you from making any further disclosure of this information unless further disclosure is expressly permitted by the written consent of the person to whom it pertains or is authorized by law. A general authorization for the release of medical or other information is not sufficient for this purpose. Hospital accepts no responsibility if the information is made available to any other person, INCLUDING THE PATIENT. Interpretation Summary * Name: JESSIE VELÁSQUEZ Study Date: 09/29/2016 07:02 AM BP: 144/88 mmHg * Patient Location: C.2T\S\S240\S\2 HR: 98 * : 1970 (M/d/yyyy) Gender: Female Height: 66 in * Age: 45 yrs Ethnicity: CA Weight: 253 lb * Ordering Physician: More Hodge * Referring Physician: Brandon Lawrence * Performed By: Susu Colón RDCS * * Reason For Study: Chest pain * BSA: 2.2 m2 * -- Conclusions -- * Left ventricular systolic function is normal. * Grade I diastolic dysfunction, (abnormal relaxation pattern). Procedure Details * A complete two-dimensional transthoracic echocardiogram was performed (2D, M-mode, Doppler and color flow Doppler). Left Ventricle * The left ventricle is grossly normal size. * There is normal left ventricular wall thickness. * Ejection Fraction = 65-70%. * Left ventricular systolic function is normal. * Grade I diastolic dysfunction, (abnormal relaxation pattern). Right Ventricle * The right ventricle is normal in size and function. Atria * The left atrial size is normal. * Right atrial size is normal. Mitral Valve * The mitral valve is grossly normal. * Significant mitral regurgitation is absent. Tricuspid Valve * The tricuspid valve is normal in structure and function. * Significant tricuspid regurgitation is absent. Aortic Valve * The aortic valve is normal in structure and function. * The aortic valve is trileaflet. * No hemodynamically significant valvular aortic stenosis. * There is no significant aortic regurgitation. Great Vessels * The aortic root is normal size. Pericardium/Pleural * There is no pericardial effusion. Great Vessels * Normal inferior vena cava diameter and respiratory variation suggests normal central venous pressure. MMode 2D Measurements and Calculations IVSd 10 cm LVIDd 4.2 cm LVIDs 2.4 cm LVPWd 1.0 cm IVS/LVPW 0.99 FS 42.4 % EDV(Teich) 80.8 ml ESV(Teich) 21.2 ml EF(Teich) 73.8 % EDV(cubed) 76.7 ml ESV(cubed) 14.7 ml EF(cubed) 80.9 % LV mass(C)d 140.3 grams LV mass(C)dI 63.5 grams/m\S\2 SV(Teich) 59.6 ml SI(Teich) 27.0 ml/m\S\2 SV(cubed) 62.1 ml SI(cubed) 28.1 ml/m\S\2 Ao root diam 3.2 cm Ao root area 8.1 cm\S\2 ACS 1.7 cm LA dimension 3.1 cm asc Aorta Diam 3.2 cm LA/Ao 0.96 LVOT diam 2.0 cm LVOT area 3.1 cm\S\2 LVAd ap4 24.3 cm\S\2 LVLd ap4 7.5 cm EDV(MOD-sp4) 63.7 ml EDV(sp4-el) 66.9 ml LVAs ap4 10.8 cm\S\2 LVLs ap4 5.6 cm ESV(MOD-sp4) 17.3 ml ESV(sp4-el) 17.9 ml EF(MOD-sp4) 72.8 % EF(sp4-el) 73.2 % LVAd ap2 19.9 cm\S\2 LVLd ap2 7.7 cm EDV(MOD-sp2) 42.3 ml EDV(sp2-el) 43.3 ml LVAs ap2 9.6 cm\S\2 LVLs ap2 5.6 cm ESV(MOD-sp2) 13.5 ml ESV(sp2-el) 14.0 ml EF(MOD-sp2) 68.0 % EF(sp2-el) 67.6 % LVLd %diff 3.1 % EDV(MOD-bp) 51.6 ml LVLs %diff 0.04 % ESV(MOD-bp) 15.1 ml EF(MOD-bp) 70.8 % SV(MOD-sp4) 46.3 ml SI(MOD-sp4) 21.0 ml/m\S\2 SV(MOD-sp2) 28.7 ml SI(MOD-sp2) 13.0 ml/m\S\2 SV(MOD-bp) 36.6 ml SI(MOD-bp) 16.5 ml/m\S\2 SV(sp4-el) 48.9 ml SI(sp4-el) 22.1 ml/m\S\2 SV(sp2-el) 29.3 ml SI(sp2-el) 13.2 ml/m\S\2 Doppler Measurements and Calculations MV E max marlon 77.5 cm/sec MV A max marlon 84.1 cm/sec MV E/A 0.92 MV dec time 0.23 sec Ao V2 max 126.8 cm/sec Ao max PG 6.4 mmHg Ao max PG (full) 2.8 mmHg KAYLENE(V,A) 2.3 cm\S\2 KAYLENE(V,D) 2.3 cm\S\2 LV V1 max PG 3.6 mmHg LV V1 max 95.2 cm/sec PA V2 max 101.8 cm/sec PA max PG 4.1 mmHg PA acc slope 553.2 cm/sec\S\2 PA acc time 0.13 sec TR max marlon 192.0 cm/sec PA pr(Accel) 20.4 mmHg
[2016-09-29] MEDS ORDERED: SUMATRIPTAN SUCCINATE 50 MG TAB PO ONE (10:30)
--- NOTE | 2016-09-29 10:46 | Discharge Instructions ---
Discharge Instructions Date of Service Sep 29, 2016. Admission Reason for Admission: Precordial Chest Pain Discharge Discharge Diagnosis / Problem: Migraine and chest pain Discharge Goals Goal(s): Decrease discomfort, Improve function, Increase independence, Improve disease control Activity Recommendations Activity Limitations: resume your previous activity Lifting Limitations: no more than 10 pounds, gradually increase as tolerated Exercise/Sports Limitations: gradually increase as tolerated May Resume Sexual Activity: when tolerated Shower/Bathe: no limitations Driving or Machine Use: resume 1 day after discharge . Instructions / Follow-Up Instructions / Follow-Up You were admitted to [facility] with migraine and musculoskeletal chest pain. - You had cardiac enzymes trended which were normal. Your other blood work was normal. - An echocardiogram was completed showing normal ejection fraction of 65%, normal systolic function and a mild grade 1 diastolic dysfunction. - Your migraine was treated with pain medication and improved. Continue taking all other medications as prescribed Follow up: Follow up with your Primary Care Provider within 1 week. Follow up with Neurology within 2 weeks. Current Hospital Diet Patient's current hospital diet: Diabetes Type 2 Diet, AHA Diet (Heart Healthy) Discharge Diet Recommended Diet: AHA Diet (Heart Healthy), Diabetes Type 2 Diet Procedures Procedures Performed: Echocardiogram 09/29/16 Pending Studies Studies pending at discharge: no Laboratory Results Hemoglobin A1c Test 09/14/16 13:36 Range/Units Estimated Average Glucose 100 mg/dl Hemoglobin A1c 5.1 4.5-5.6 % Lipid Panel Test 09/14/16 13:36 Range/Units Triglycerides Level 75 0-150 mg/dl Cholesterol Level 219 H 0-200 mg/dl HDL Cholesterol 68 mg/dl Cholesterol/HDL Ratio 3.2 LDL Cholesterol, Calculated 136 mg/dl Medical Emergencies . Who to Call and When: Medical Emergencies: If at any time you feel your situation is an emergency, please call 911 immediately. . Non-Emergent Contact Non-Emergency issues call your: Primary Care Provider Call Non-Emergent contact if: you have a fever, your pain is not controlled, your pain is worsening, you have any medication questions . Past History Medical & Surgical History: (1) Headache (2) Precordial chest pain (3) Diabetes (4) Hypertension . "Provider Documentation" section prepared by Lisa Madrigal. . VTE Core Measure Inpt VTE Proph given/why not?: Enoxaparin (Lovenox)SQ, Maurice. Ben, SCD's
[2016-09-29 11:45] VITALS: BP 144/88; PULSE 98; TEMP 36.4; O2SAT 98
--- NOTE | 2016-09-29 12:27 | Discharge Summary ---
Discharge Summary Date of Service Sep 29, 2016. (Lala Madrigal PA-C) Discharge Summary Admission Date: Sep 28, 2016 at 17:17 Discharge Date: Sep 29, 2016 Discharge Disposition: Home Principal Diagnosis: Migraine and musculoskeletal chest pain Problems/Secondary Diagnoses: (1) Hypertension Status: Chronic Immunizations: Have You Had Influenza Vaccine: Unknown History of Tetanus Vaccine?: Unknown History of Pneumococcal: Unknown History of Hepatitis B Vaccine: Unknown Procedures: CHEST ONE VIEW PORTABLE 09/28/16 CLINICAL HISTORY: Atypical chest pain. Hypertension. COMPARISON STUDY: 06/13/2016 FINDINGS: The cardiac and mediastinal contours are normal. There is no evidence of focal pulmonary consolidation. There is no evidence of failure. No pleural effusions are visualized.[ IMPRESSION: No active disease in the chest. (Lala Madrigal PA-C) Medication Reconciliation Continued Medications: Acetaminophen Tab (Tylenol) 325 Mg Tab 325 MG PO, TAB Albuterol Hfa (Ventolin Hfa) 200 Puffs/25292 Mcg Aers 2-4 PUFFS INH Q6H, #1 INHALER Albuterol Sulf (Proventil 0.083% 2.5MG/3ML) 2.5 Mg/3 Ml Nebu 2.5 MG INH QID, EA Vnhlqwc-Yxikptyrlptnc-Gnezbsyi (Excedrin Migraine) 1 Tab Tab Cetirizine (Zyrtec) 10 Mg Tab 10 MG PO HS, TAB Cholecalciferol (Vitamin D3) 5,000 Unit Tab 5000 UNIT PO DAILY Lansoprazole (Prevacid) 30 Mg Cap 30 MG PO BID, CAP Lisinopril (Lisinopril) 2.5 Mg Tab 2.5 MG PO DAILY, TAB Lysine Hcl (L-Lysine) 500 Mg Tab 500 MG PO DAILY Metformin Hcl (Glucophage) 500 Mg Tab 500 MG PO BID, TAB Multiple Vitamin (Multivitamin) 1 Tab Tab 1 TAB PO DAILY, TAB Nortriptyline HCl (Nortriptyline HCl) 50 Mg Cap 50 MG PO HS Ranitidine Hcl (Zantac) 150 Mg Tab 150 MG PO DAILY, TAB Sumatriptan-Naproxen Sodium (Treximet) 1 Tab Tab Topiramate (Topamax) 200 Mg Tab 200 MG PO BID, TAB Verapamil Sust Rel (Calan Sr Ext Rel) 240 Mg Tabcr 240 MG PO DAILY, TAB Discharge Exam Subjective Pt evaluation today including: conversation w/ patient, physical exam, chart review, lab review, review of studies Pain: Headache, severe PO Intake: Good Voiding: no voiding problems The patient was seen and examined this morning. Pt reports her headache is frontal, and extends about half way back to her scalp, it is affecting her eyesite in the right, and she is having some twitching under her left eye. She reports having some left sided shoulder pain which is a 4/10 vs a 7/10 yesterday , so it is improved. At home she uses tylenol for pain relief, and takes a total of 2,000mg at a time, pt reports she has spoken with her neurologist about this, and that she's aware 4g is the max daily dose of tylenol. She no longer uses any nsaids due to hx of gastritis and gastric ulcers seen on EGD. She denies feeling chest pain, palpitations flutter, sob, dyspnea on exertion or at rest. Additional Comments: 6 point ROS reviewed and otherwise negative, see HPI. Objective Vital Signs Date Time Temp Pulse Resp B/P (MAP) Pulse Ox O2 Delivery O2 Flow Rate FiO2 09/29/16 07:13 84 16 98 Room Air 09/29/16 04:00 36.6 92 18 136/70 (92) 95 Room Air 09/29/16 04:00 Room Air 09/29/16 00:00 Room Air 09/28/16 23:49 36.8 95 18 127/81 (96) 98 Room Air 09/28/16 20:20 94 16 98 Room Air 09/28/16 20:09 96 Room Air 09/28/16 18:52 36.3 94 18 144/79 96 Room Air 09/28/16 18:13 90 18 130/95 96 09/28/16 16:40 92 18 133/97 98 Room Air 09/28/16 15:44 95 20 126/100 95 Room Air 09/28/16 15:19 92 09/28/16 15:10 96 Room Air 09/28/16 14:17 36.3 91 18 160/123 96 Room Air Physical Exam General Appearance: WD/WN, no apparent distress, + obese Eyes: normal inspection, PERRL, EOMI ENT: hearing grossly normal, pharynx normal Neck: supple, no JVD, + pertinent finding (tenderness in superior trapezius in the left) Respiratory/Chest: lungs clear, no respiratory distress, no accessory muscle use, + pertinent finding (+chest tenderness with palpation over ant L wall) Cardiovascular: regular rate, rhythm, no JVD, no murmur Abdomen: normal bowel sounds, non tender, soft, no organomegaly Extremities: normal range of motion, no pedal edema, no calf tenderness Neurologic/Psychiatric: alert, normal mood/affect, oriented x 3 Skin: normal color, warm/dry (Lala Madrigal PA-C) Hospital Course H&P per More Hodge PA-C History of Present Illness Source: patient, clinic records, hospital records This is a 45 y/o female with a history of HTN, HLD, DM II, migraines, and GERD who presented to the ED on 09/28 with headache and chest pain. Patient woke up early in the morning with a severe headache. She does have a history of migraines. She took 3 Tylenol 325 mg without any relief, followed by 3 Excedrin Migraine tabs a few hours later, again without relief. She also took a Treximet tab without relief. Around noon, the patient developed central chest tightness, diaphoresis, shortness of breath and nausea. The patient checked her blood sugar this morning. She then checked her blood pressures over the course of the next hour which were reasonable. She called her primary care provider's office who advised her to go to ER for further evaluation. The patient does have strong family history for heart attacks. Currently the patient states that her chest discomfort 3/10 tightness, although it is now radiating to her left axilla region and upper arm, which it did not do initially. Her axilla/arm pain is actually rated worse at a 6-7/10. Her diaphoresis has resolved, but she still feels somewhat short of breath and nauseous. The patient does admit to missing her verapamil dose last night. The patient denies fevers, chills, palpitations, claudication, cough, wheezing, vomiting, abdominal pain, dysuria, hematuria, urinary retention, paralysis, weakness, numbness and tingling. Physical Exam Vital Signs Date Time Temp Pulse Resp B/P (MAP) Pulse Ox O2 Delivery O2 Flow Rate FiO2 09/28/16 18:13 90 18 130/95 96 09/28/16 16:40 92 18 133/97 98 Room Air 09/28/16 15:44 95 20 126/100 95 Room Air 09/28/16 15:19 92 09/28/16 15:10 96 Room Air 09/28/16 14:17 36.3 91 18 160/123 96 Room Air General appearance: +Morbidly obese. Well-developed, well-nourished, no apparent distress Head: Normocephalic, atraumatic Eyes: +Right lazy eye. Right eye cannot move laterally to the right. Normal inspection, PERRL ENT: Normal ENT inspection, hearing grossly normal, pharynx normal Neck: Supple, no JVD, trachea midline Respiratory/Chest: +Central and left chest pain reproducible. Lungs clear to auscultation, normal breath sounds, no respiratory distress Cardiovascular: Regular rate & rhythm, no gallop, no murmur Abdomen/GI: Normal bowel sounds, non-tender, soft Extremities/Musculoskeletal: +Left axilla and left upper arm TTP. Normal inspection, no calf tenderness, no pedal edema Neurological/Psych: Alert, normal mood/affect, oriented x 3 Skin: Normal color, warm/dry, no rash Hospital Course: 45 y/o female with a history of HTN, HLD, DM II, migraines, and GERD who presented to the ED on 09/28 with headache and chest pain. Pt developed diaphoresis, mild SOB, and nausea with the chest pain, prompting her to come to the ED. EKG did not show any ischemic changes. Cardiac enzymes negative x 1. D-dimer negative. CXR no acute disease. Chest pain - Improved today, likely musculoskeletal in nature with negative CE. - Trend cardiac enzymes negative x 2 - Echocardiogram: * -- Conclusions -- * Left ventricular systolic function is normal. * Grade I diastolic dysfunction, (abnormal relaxation pattern). Procedure Details * A complete two-dimensional transthoracic echocardiogram was performed ( 2D, M-mode, Doppler and color flow Doppler). Left Ventricle * The left ventricle is grossly normal size. * There is normal left ventricular wall thickness. * Ejection Fraction = 65-70%. * Left ventricular systolic function is normal. * Grade I diastolic dysfunction, (abnormal relaxation pattern). - EKG prn chest pain and q am - reviewed, in NSR HTN -stable - Continue verapamil 240 mg PO qd and lisinopril 2.5 mg PO qd Diabetes mellitus type 2--last HgbA1c checked 09/14/16 was 5.1 - Hold metformin - ISS with accuchecks achs Migraines - pt states she has severe headaches every day, follows with Dr. Frank - Continue topiramate 200 mg PO BID, nortriptyline 50 mg PO qd - Pt cautioned on max dosage of Tylenol. She can take an aleve or NSAID 1-2 times a week with food if tylenol does not work w/ hx of gastritis on EGD. I asked her to discuss this with her PCP and Dr. Frank. - Will order imitrex 50 mg tab x1 and see if this helps this morning- normally takes sumatriptan-naproxen at home and this works well for her. - Encouraged stretching her muscles, exercise, and yoga to help alleviate neck/ shoulder pain. 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 She is also caring for her father who has MS. She reports having a good support system with brother and , and does not feel counseling would benefit her at this time. GERD -Continue Zantac 150 mg PO qhs -Convert lansoprazole to pantoprazole 40 mg PO qam DVT pppx: Lovenox, Teds, SCDs Code Status: Full Code Disposition: From home, discharge home today. Will need f/u with PCP within a week and neurology within 2 weeks. Total Time Spent: Greater than 30 minutes This includes examination of the patient, discharge planning, medication reconciliation, and communication with other providers. (Lala Madrigal PA-C) Discharge Instructions Please refer to the electronic Patient Visit Report (Discharge Instructions) for additional information. (Lala Madrigal PA-C) Follow-Up f/u with PCP within a week and neurology within 2 weeks. (Lala Madrigal PA-C) Additional Copies To Brandon Lawrence M.D. Reviewed: Pt Seen/Exam by Me (Mary Major, ) History Migraine still present. Chest pain is present, but improved. Tolerating PO. Agree with HPI/ROS as noted. (Mray Major, DO) General Appearance: WD/WN, no apparent distress Respiratory: normal breath sounds, no respiratory distress Cardiovascular: regular rate, rhythm, no edema Gastrointestinal: non tender, soft Extremities: non-tender, no pedal edema Neurologic/Psychiatric: alert, oriented x 3 Skin Characteristics: normal color, warm/dry (Mary Major, ) Assessment/Plan Agree with plan as outlined above Chest pain: cards w/u neg Reproducible, likely MSK/muscle strain Migraine: usual care with abortive Discussed acupuncture (Mary Major, DO)
[2016-11-16] MEDS ORDERED: NORT75CA4 PO (11:16)
[2016-11-16] MEDS ORDERED: TRAM-10 PO (11:16)
[2016-11-16] MEDS ORDERED: RANI150C4 PO (11:16)
[2016-11-16] MEDS ORDERED: SUMA1TAB PO (11:20)
[2016-11-22] MEDS ORDERED: DEXL60CA4 PO (11:44)
[2016-11-22] MEDS ORDERED: RANI300C PO (11:44)
== END 2016-09-29 11:58 | disposition home or self-care (01) ==
LOC: C.EDB 14:16 → C.2T 17:17 → ENRESERV 17:38
PROVIDERS: ADMIT Hospitalist; ATTEND Family Medicine
DX: R07.89 Other chest pain (principal); I10 Essential (primary) hypertension; E11.9 Type 2 diabetes mellitus without complications; G43.909 Migraine, unspecified, not intractable, without status migrainosus; K21.9 Gastro-esophageal reflux disease without esophagitis; Z79.899 Other long term (current) drug therapy; Z82.49 Family history of ischemic heart disease and other diseases of the circulatory system; Z79.84 Long term (current) use of oral hypoglycemic drugs

== ENCOUNTER → 2016-10-14 | Outpatient (CLI) | payer OTHER ==
[~2016-10-14] MED LIST changes: +ALBINS/ INH; -ALBU1NEB10 INH; +CETI10TA84 PO; +CHOL1TAB46 PO; +DEXL60CA4 PO; +GLC/500 PO; -GLC500; -HYDR-4079 PO; +LANS30CA41 PO; +LISI2.5T5 PO; -LYSI100010; +LYSI500T34 PO; -METH4PAK PO; +NORT75CA4 PO; -PANT1TAB48 PO; +RANI150C4 PO; +RANI300C PO; +SUMA1TAB PO; +TRAM-10 PO; +VERA240T20 PO; +VNTHFA/IN INH
== END | disposition home or self-care (01) ==
LOC: C.LAB1850 13:23
PROVIDERS: ATTEND Nurse Practitioner Adult Health
DX: E78.5 Hyperlipidemia, unspecified (principal)

== ENCOUNTER → 2016-11-10 | Outpatient (CLI) | payer OTHER ==
[2016-11-10 15:36] LABS: BASO % 0.5 %; BASO ABS # 0.03 K/uL (0-0.2); COMPLETE YES; EOS % 3.1 %; HEMATOCRIT 42.6 % (37-47); IG% 0.2 %; LYMPH % 27.5 %; LYMPH ABS # 1.75 K/uL (1.2-3.4); MEAN CELL VOLUME 90.6 fL (80-100); MEAN CORPUSCULAR HEMOGLOBIN 29.8 pg (25-34); MEAN CORPUSCULAR HGB CONC 32.9 g/dl (32-36); MONO % 7.9 %; NEUT % 60.8 %; PLATELET COUNT 280 K/uL (130-400); WHITE BLOOD COUNT 6.36 K/uL (4.8-10.8)
== END | disposition home or self-care (01) ==
LOC: C.LAB1850 14:21
PROVIDERS: ATTEND Nurse Practitioner Adult Health
DX: T14.8 Other injury of unspecified body region (principal); X58.XXXA Exposure to other specified factors, initial encounter

== ENCOUNTER → 2016-11-29 | Day surgery (SDC) | payer OTHER ==
[2016-11-16 11:22] VITALS: Ht 168.9 cm; Wt 116.4 kg
[~2016-11-29] VITALS: Ht 168.9 cm; Wt 116.4 kg
[~2016-11-29] MED LIST changes: -LANS30CA41 PO; +LIDOCAINE HCL 2% 2 ML VIAL (20MG/ML) ONE; -NRT/50 PO; +PHENYLEPHRINE 100MCG/ML 5ML SYR ONE; +PROPOFOL IV EMULSION 10 MG/ML 20 ML VIAL IV ONE; -RANI150C4 PO; -RANI150T3 PO; +SODIUM CHLORIDE 0.9% 500ML 500 ML IV ONE; -[UNRECOGNIZED DRUG - CODE]
--- NOTE | 2016-11-29 09:23 | Endo History and Physical ---
History & Physical Date of Service: Nov 29, 2016. Chief Complaint: GERD and Rectal bleeding Referring Physician: Dr. Lawrence History of Present Illness 45 yo CF who presents for EGD and colonoscopy secondary to GERD and rectal bleeding. Past Medical History Asthma, Reflux, Sleep Apnea Past Surgical History Hx Cardiac Surgery: No Hx Internal Defibrillator: No Hx Pacemaker: No Hx Abdominal Surgery: No Hx of Implantable Prosthesis: No Hx Post-Op Nausea and Vomiting: No Hx Cancer Surgery: No Hx Thoracic Surgery: No Hx Orthopedic: No Hx Urinary Tract Surgery: No Family History Colon CA Social History Smoking Status: Never Smoker Hx Substance Use: No Hx Alcohol Use: Yes (OCCASIONAL) Allergies Coded Allergies: Sulfa Drugs (Verified Allergy, Mild, TONGUE PEELS, 11/16/16) Adhesives (Verified Allergy, Unknown, SKIN IRRITATION/SENSITIVITY, 11/16/16 ) Latex1 -Allergic Contact Dermititis (Verified Allergy, Unknown, SKIN IRRITATION, 11/16/16) Metoclopramide (Verified Adverse Reaction, Unknown, HIVES AND ARTHRITIS SYMPTOMS, 11/16/16) Current Medications Reported Home Medications Medications Dose Route/Sig Max Daily Dose Days Date Category Dexilant (Dexlansoprazole) 60 Mg Cap 1 Tab PO QAM 11/22/16 Reported Ranitidine Hcl 300 Mg Cap 1 Cap PO HS 11/22/16 Reported Treximet 10-60 mg (Sumatriptan-Naproxen Sodium) 1 Tab Tab 1 Tab PO UD PRN 11/16/16 Reported Ultram (Tramadol HCl) 50 Mg Tab 1 Tab PO BID PRN 11/16/16 Reported Pamelor (Nortriptyline Hcl) 75 Mg Cap 75 Mg PO HS 11/16/16 Reported Zyrtec (Cetirizine HCl) 10 Mg Tab 10 Mg PO HS 09/28/16 Reported Vitamin D3 (Cholecalciferol) 5,000 Unit Tab 5,000 Unit PO QPM 09/28/16 Reported Calan Sr Ext Rel (Verapamil HCl) 240 Mg Tabcr 240 Mg PO QAM 09/28/16 Reported Ventolin Hfa (Albuterol) 200 Puffs/00900 Mcg Aers 2-4 Puffs INH Q6H PRN 09/28/16 Reported Topamax (Topiramate) 200 Mg Tab 200 Mg PO BID 09/28/16 Reported Glucophage (Metformin Hcl) 500 Mg Tab 500 Mg PO BID 09/28/16 Reported Lisinopril 2.5 Mg Tab 2.5 Mg PO QPM 09/28/16 Reported L-Lysine (Lysine Hcl) 500 Mg Tab 500 Mg PO QAM 09/28/16 Reported Proventil 0.083% 2.5MG/3ML (Albuterol Sulf) 2.5 Mg/3 Ml Nebu 2.5 Mg INH QID PRN 09/28/16 Reported Tylenol (Acetaminophen) 325 Mg Tab 325 Mg PO Q4H PRN 09/10/13 Reported Multivitamin (Multiple Vitamin) 1 Tab Tab 1 Tab PO QPM 09/10/13 Reported Excedrin Migraine (Bhfxsfc-Ehhamzmbgpitx-Swzhjjlz) 1 Tab Tab 1 Tab PO TID-QID PRN 09/10/13 Reported Vital Signs Weight (Kilograms): 116.36 Height (Feet): 5 Height (Inches): 6.5 Physical Exam General Appearance: WD/WN, no apparent distress Respiratory/Chest: Auscultation: breath sounds normal Cardiovascular: Heart Auscultation: RRR Abdomen: Bowel Sounds: normal Inspection & Palpation: soft, non-distended, no tenderness, guarding & rebound Assessment and Plan Assessment: 45 yo CF who presents for EGD and colonoscopy secondary to GERD and rectal bleeding. Plan: Proceed with EGD and colonoscopy.
[2016-11-29 09:26] VITALS: TEMP 36.7
--- NOTE | 2016-11-29 09:59 | GI REPORT ---
Procedure Date: 11/29/2016 9:17 AM Procedure: Upper GI endoscopy Indications: Gastro-esophageal reflux disease Medicines: Monitored Anesthesia Care Complications: No immediate complications. Estimated Blood Loss: Estimated blood loss: none. Procedure: Pre-Anesthesia Assessment: - Prior to the procedure, a History and Physical was performed, and patient medications and allergies were reviewed. The patient's tolerance of previous anesthesia was also reviewed. The risks and benefits of the procedure and the sedation options and risks were discussed with the patient. All questions were answered, and informed consent was obtained. Prior Anticoagulants: The patient has taken no previous anticoagulant or antiplatelet agents. ASA Grade Assessment: II - A patient with mild systemic disease. After reviewing the risks and benefits, the patient was deemed in satisfactory condition to undergo the procedure. After obtaining informed consent, the endoscope was passed under direct vision. Throughout the procedure, the patient's blood pressure, pulse, and oxygen saturations were monitored continuously. The Scope was introduced through the mouth, and advanced to the second part of duodenum. The upper GI endoscopy was accomplished without difficulty. The patient tolerated the procedure well. Findings: The esophagus was normal. Localized moderate inflammation characterized by erythema was found in the gastric antrum. Biopsies were taken with a cold forceps for histology. A small hiatus hernia was present. The examined duodenum was normal. Impression: - Normal esophagus. - Gastritis. Biopsied. - Small hiatus hernia. - Normal examined duodenum. Recommendation: - Resume previous diet. - Continue present medications. - Await pathology results. - Return to GI office as previously scheduled. Anam Lee DO 11/29/2016 9:58:25 AM This report has been signed electronically. Note Initiated On: 11/29/2016 9:17 AM I attest to the content of the Intraoperative Record and orders documented therein, exceptions below
--- NOTE | 2016-11-29 10:22 | Discharge Instructions ---
Endoscopy Patient Instructions Date / Procedure(s) Performed Nov 29, 2016. Colonoscopy, EGD Allergy Information Coded Allergies: Sulfa Drugs (Verified Allergy, Mild, TONGUE PEELS, 11/16/16) Adhesives (Verified Allergy, Unknown, SKIN IRRITATION/SENSITIVITY, 11/16/16 ) Latex1 -Allergic Contact Dermititis (Verified Allergy, Unknown, SKIN IRRITATION, 11/16/16) Metoclopramide (Verified Adverse Reaction, Unknown, HIVES AND ARTHRITIS SYMPTOMS, 11/16/16) Discharge Date / Findings Nov 29, 2016. EGD: Gastritis and Hiatal hernia Colonoscopy: Colon polyp, Rectal polyp, Diverticulosis, and Internal hemorrhoids Medication Instructions Stopped Medication(s): last dose Glucophage monday OK to resume all medications today as prescribed Reported Home Medications Medications Dose Route/Sig Max Daily Dose Days Date Category Dexilant (Dexlansoprazole) 60 Mg Cap 1 Tab PO QAM 11/22/16 Reported Ranitidine Hcl 300 Mg Cap 1 Cap PO HS 11/22/16 Reported Treximet 10-60 mg (Sumatriptan-Naproxen Sodium) 1 Tab Tab 1 Tab PO UD PRN 11/16/16 Reported Ultram (Tramadol HCl) 50 Mg Tab 1 Tab PO BID PRN 11/16/16 Reported Pamelor (Nortriptyline Hcl) 75 Mg Cap 75 Mg PO HS 11/16/16 Reported Zyrtec (Cetirizine HCl) 10 Mg Tab 10 Mg PO HS 09/28/16 Reported Vitamin D3 (Cholecalciferol) 5,000 Unit Tab 5,000 Unit PO QPM 09/28/16 Reported Calan Sr Ext Rel (Verapamil HCl) 240 Mg Tabcr 240 Mg PO QAM 09/28/16 Reported Ventolin Hfa (Albuterol) 200 Puffs/59719 Mcg Aers 2-4 Puffs INH Q6H PRN 09/28/16 Reported Topamax (Topiramate) 200 Mg Tab 200 Mg PO BID 09/28/16 Reported Glucophage (Metformin Hcl) 500 Mg Tab 500 Mg PO BID 09/28/16 Reported Lisinopril 2.5 Mg Tab 2.5 Mg PO QPM 09/28/16 Reported L-Lysine (Lysine Hcl) 500 Mg Tab 500 Mg PO QAM 09/28/16 Reported Proventil 0.083% 2.5MG/3ML (Albuterol Sulf) 2.5 Mg/3 Ml Nebu 2.5 Mg INH QID PRN 09/28/16 Reported Tylenol (Acetaminophen) 325 Mg Tab 325 Mg PO Q4H PRN 09/10/13 Reported Multivitamin (Multiple Vitamin) 1 Tab Tab 1 Tab PO QPM 09/10/13 Reported Excedrin Migraine (Bctuzvb-Cgfoixyyxqvdg-Lhvhvtjd) 1 Tab Tab 1 Tab PO TID-QID PRN 09/10/13 Reported Provider Instructions Activity Restrictions - No exercising or heavy lifting for 24 hours. - Do not drink alcohol the day of the procedure. - Do not drive a car or operate machinery until the day after the procedure. - Do not make any important decisions or sign important papers in 24 hours after the procedure. Following Day: - Return to full activity which may include returning to work/school. Diet Start your diet with liquids and light foods (jello, soup, juice, toast). Then eat your usual diet if not nauseated. Treatment For Common After Affects For mild abdominal pain, bloating, or excessive gas: - Rest - Eat lightly - Lie on right side Follow-Up Information Follow-up with Dr. Brandon Lawrence as scheduled Anesthesia Information What You Should Know You have had a procedure that required some medicine to reduce anxiety and discomfort. This treatment is called moderate sedation. After receiving the treatment, you may be sleepy, but you will be able to breathe on your own. The effects of the treatment may last for several hours. Follow these instructions along with Activity/Diet recommendations noted above: * Do NOT do anything where dizziness or clumsiness would be dangerous. * Rest quietly at home today, then you can be up and about tomorrow. * Have a responsible person stay with you the rest of today. * You may have had an I.V. today. If so, you may take the dressing off later today. Recommendations Call your doctor if: * Trouble breathing * Continuous vomiting for more than 24 hours * Temperature above 101 degrees * Severe abdominal pain or bloating * Pain not relieved by pain medicine ordered * There is increased drainage or redness from any incision * A large amount of rectal bleeding greater than 2-3 tablespoons. (If you had a polyp/s removed or have hemorrhoids, a small amount of blood - from the rectum is to be expected.) * You have any unanswered questions or concerns. IN THE EVENT OF A SERIOUS EMERGENCY, GO TO THE NEAREST EMERGENCY ROOM Your discharge instructions were prepared by provider Anam Lee. Patient Instructions Signature Page Melba Amador Patient (or Guardian) Signature/Date: I have read and understand the instructions given to me by my caregivers. Caregiver/RN/Doctor Signature/Date: The above-named patient and/or guardian has received patient instructions on this date. + Original Patient Signature Page (only) stays with chart. Please make copy for patient.
--- NOTE | 2016-11-29 10:31 | Anesthesiology Progress Note ---
Anesthesia Post Op Note Date & Time Nov 29, 2016 at 10:31 Vital Signs Pain Intensity: 0 Vital Signs Past 12 Hours Date Time Temp Pulse Resp B/P (MAP) Pulse Ox O2 Delivery O2 Flow Rate FiO2 11/29/16 10:21 82 12 104/81 (89) 100 Room Air 11/29/16 09:26 36.7 96 18 164/84 (110) 98 Room Air Notes Mental Status: alert / awake / arousable, participated in evaluation Pt Amnestic to Procedure: Yes Nausea / Vomiting: adequately controlled Pain: adequately controlled Airway Patency, RR, SpO2: stable & adequate BP & HR: stable & adequate Hydration State: stable & adequate Anesthetic Complications: no major complications apparent
--- NOTE | 2016-11-29 10:37 | GI REPORT ---
Procedure Date: 11/29/2016 9:36 AM Procedure: Colonoscopy Indications: Rectal bleeding Medicines: Monitored Anesthesia Care Complications: No immediate complications. Estimated Blood Loss: Estimated blood loss: none. Procedure: Pre-Anesthesia Assessment: - Prior to the procedure, a History and Physical was performed, and patient medications and allergies were reviewed. The patient's tolerance of previous anesthesia was also reviewed. The risks and benefits of the procedure and the sedation options and risks were discussed with the patient. All questions were answered, and informed consent was obtained. Prior Anticoagulants: The patient has taken no previous anticoagulant or antiplatelet agents. ASA Grade Assessment: III - A patient with severe systemic disease. After reviewing the risks and benefits, the patient was deemed in satisfactory condition to undergo the procedure. After I obtained informed consent, the scope was passed under direct vision. Throughout the procedure, the patient's blood pressure, pulse, and oxygen saturations were monitored continuously. The scope was introduced through the anus and advanced to the terminal ileum. The colonoscopy was performed without difficulty. The patient tolerated the procedure well. The quality of the bowel preparation was good. The terminal ileum, ileocecal valve, appendiceal orifice, and rectum were photographed. Findings: Two sessile polyps were found in the rectum and in the descending colon. The polyps were 4 to 5 mm in size. These polyps were removed with a cold snare. Resection and retrieval were complete. Multiple small-mouthed diverticula were found in the sigmoid colon. Non-bleeding internal hemorrhoids were found during retroflexion. The hemorrhoids were small. Impression: - Two 4 to 5 mm polyps in the rectum and in the descending colon, removed with a cold snare. Resected and retrieved. - Diverticulosis in the sigmoid colon. - Non-bleeding internal hemorrhoids. Recommendation: - Resume previous diet. - Continue present medications. - Repeat colonoscopy for surveillance based on pathology results. - Return to primary care physician as previously scheduled. Anam Lee, DO 11/29/2016 10:36:35 AM This report has been signed electronically. Note Initiated On: 11/29/2016 9:36 AM I attest to the content of the Intraoperative Record and orders documented therein, exceptions below
[2016-11-29 10:45] VITALS: BP 125/89; PULSE 85; O2SAT 100
== END | disposition home or self-care (01) ==
LOC: C.GI 08:42
PROVIDERS: ATTEND Internal Medicine
DX: K62.5 Hemorrhage of anus and rectum (principal); D12.4 Benign neoplasm of descending colon; D12.8 Benign neoplasm of rectum; K29.50 Unspecified chronic gastritis without bleeding; K57.30 Diverticulosis of large intestine without perforation or abscess without bleeding; K21.9 Gastro-esophageal reflux disease without esophagitis; K64.8 Other hemorrhoids; J45.909 Unspecified asthma, uncomplicated; G47.39 Other sleep apnea; Z80.0 Family history of malignant neoplasm of digestive organs; Z79.899 Other long term (current) drug therapy

== ENCOUNTER → 2017-03-29 | Outpatient (CLI) | payer OTHER ==
[~2017-03-29] MED LIST changes: -LIDOCAINE HCL 2% 2 ML VIAL (20MG/ML) ONE; -PHENYLEPHRINE 100MCG/ML 5ML SYR ONE; -PROPOFOL IV EMULSION 10 MG/ML 20 ML VIAL IV ONE; -SODIUM CHLORIDE 0.9% 500ML 500 ML IV ONE
[2017-03-29 13:48] LABS: ESTIMATED AVERAGE GLUCOSE 97 mg/dl; HA1C FLAG Normal (Normal)
[2017-03-29 13:54] LABS: ALT/SGPT 20 U/L (12-78); AST/SGOT 6 U/L (15-37); BLOOD UREA NITROGEN 11 mg/dl (7-18); BUN/CREATININE RATIO 12.9 (10-20); CALCIUM 8.8 mg/dl (8.5-10.1); CARBON DIOXIDE 22 mmol/L (21-32); CHLORIDE 109 mmol/L (98-107); CREATININE 0.84 mg/dl (0.60-1.20); GLUCOSE 80 mg/dl (70-99); POTASSIUM 3.6 mmol/L (3.5-5.1); SODIUM 138 mmol/L (136-145)
[2017-03-29 13:57] LABS: CHOLESTEROL 185 mg/dl (0-200); CHOLESTEROL/HDL RATIO 3.1; HDL CHOLESTEROL 59 mg/dl; LDL CHOLESTEROL CALCULATED 97 mg/dl; TRIGLYCERIDES 144 mg/dl (0-150); VERY LOW DENSITY LIPOPROT CALC 29 mg/dl
== END | disposition home or self-care (01) ==
LOC: C.LAB1850 12:33
PROVIDERS: ATTEND Internal Medicine
DX: E55.9 Vitamin D deficiency, unspecified (principal); R73.01 Impaired fasting glucose; E78.5 Hyperlipidemia, unspecified; I10 Essential (primary) hypertension

== ENCOUNTER 2017-04-20 19:44 | Emergency (ER) | payer OTHER ==
[~2017-04-20] VITALS: Ht 167.6 cm; Wt 117.8 kg
[~2017-04-20 19:44] MED LIST changes: -LEVO1TAB33 PO; -METH1TAB81 PO
[2017-04-20 19:46] VITALS: Ht 167.6 cm; Wt 117.8 kg
[2017-04-20] MEDS ORDERED: OPTIRAY 320 IV PRN (20:15)
--- NOTE | 2017-04-20 20:22 | DIAGNOSTIC IMAGING REPORT ---
CHEST ONE VIEW PORTABLE CLINICAL HISTORY: 46 years-old Female presenting with Chest Pain. TECHNIQUE: Portable upright AP view of the chest was obtained. COMPARISON: 09/28/2016. FINDINGS: Atherosclerosis of aortic arch. Cardiac silhouette top normal in size allowing for AP technique. Mildly low lung volumes with hypoventilatory changes. Lungs and pleural spaces otherwise clear. Osseous structures normal. Upper abdomen normal. IMPRESSION: 1. Mildly low lung volumes with hypoventilatory changes. Otherwise no acute cardiopulmonary disease. Electronically signed by: Michael Jessica M.D. 04/20/2017 8:21 PM Dictated Date/Time: 04/20/2017 8:19 PM
[2017-04-20] MEDS ORDERED: METH1TAB81 PO (20:40)
[2017-04-20] MEDS ORDERED: LEVO1TAB33 PO (20:40)
[2017-04-20 20:50] LABS: BASO % 0.1 %; BASO ABS # 0.01 K/uL (0-0.2); EOS % 0.6 %; EOS ABS # 0.06 K/uL (0-0.5); HEMATOCRIT 40.2 % (37-47); HEMOGLOBIN 13.5 g/dL (12.0-16.0); IG# 0.02 K/uL (0.00-0.02); LYMPH % 11.1 %; LYMPH ABS # 1.11 K/uL (1.2-3.4); MEAN CELL VOLUME 89.7 fL (80-100); MEAN CORPUSCULAR HEMOGLOBIN 30.1 pg (25-34); MEAN CORPUSCULAR HGB CONC 33.6 g/dl (32-36); MEAN PLATELET VOLUME 10.5 fL (7.4-10.4); MONO % 3.4 %; MONO ABS # 0.34 K/uL (0.11-0.59); NEUT % 84.6 %; NEUT ABS # 8.48 K/uL (1.4-6.5); PLATELET COUNT 227 K/uL (130-400); RED CELL DISTRIBUTION WIDTH CV 13.5 % (11.5-14.5); RED CELL DISTRIBUTION WIDTH SD 44.1 fL (36.4-46.3); WHITE BLOOD COUNT 10.02 K/uL (4.8-10.8)
[2017-04-20 20:50] LABS: ISTAT CREATININE 0.8 mg/dl (0.6-1.3); ISTAT IONIZED CALCIUM 1.21 mmol/l (1.12-1.32); ISTAT POTASSIUM 3.4 mEq/L (3.3-5.0)
--- NOTE | 2017-04-20 21:01 | DIAGNOSTIC IMAGING REPORT ---
(CHEST FOR PE) ANGIO WITH CLINICAL HISTORY: 46 years-old Female presenting with ^+dd and cp. TECHNIQUE: Multidetector CT angiography of the chest was performed after administration of intravenous contrast. 3-D volumetric and/or maximum intensity projection (MIP) images were subsequently reconstructed for review. IV contrast: 77 mL of Optiray 320. A dose lowering technique was used consistent with the principles of ALARA (as low as reasonably achievable). COMPARISON: Chest x-ray performed earlier the same day. CT DOSE (mGy.cm): The estimated cumulative dose is 610.58 mGy.cm. FINDINGS: Recycling Tech topogram: Unremarkable. Pulmonary vasculature: The study is suboptimal for the assessment of the pulmonary vascular tree secondary to the timing of the contrast bolus. Allowing for this, no filling defect within main, lobar, or segmental pulmonary arteries. Evaluation of subsegmental pulmonary arteries limited. Main pulmonary artery is not enlarged. No flattening of the interventricular septum. No intracardiac intracardiac filling defect. No reflux of contrast into the hepatic veins. Remaining chest: On soft tissue windows, normal thyroid and thoracic inlet. No axillary, supraclavicular, hilar, or mediastinal lymphadenopathy. Normal aorta. Normal heart size. No pericardial or pleural effusion. Upper abdomen normal. On lung windows, Mosaic attenuation prominently throughout the lungs could suggest small airways disease. No superimposed focal infiltrate. No interlobular septal thickening. Mild bronchial wall thickening. Large airways patent. On bone windows, normal osseous structures. IMPRESSION: 1. No evidence of pulmonary embolus. 2. Prominent mosaic attenuation suggest small airways disease or less likely a vascular etiology. Mild bronchial wall thickening also noted, which is nonspecific and could be seen in the setting of reactive airways disease, bronchiolitis, or congestive change. Electronically signed by: Michael Jessica M.D. 04/20/2017 9:00 PM Dictated Date/Time: 04/20/2017 8:52 PM
[2017-04-20 21:06] LABS: BLOOD UREA NITROGEN 14 mg/dl (7-18); CALCIUM 8.8 mg/dl (8.5-10.1); CARBON DIOXIDE 22 mmol/L (21-32); CREATININE 0.88 mg/dl (0.60-1.20); GLUCOSE 103 mg/dl (70-99); POTASSIUM 3.4 mmol/L (3.5-5.1); SODIUM 139 mmol/L (136-145)
[2017-04-20 21:11] LABS: CKMB 0.6 ng/ml (0.5-3.6)
--- NOTE | 2017-04-20 22:11 | DIAGNOSTIC IMAGING REPORT ---
R VENOUS DOPP LOWER EXT UNILAT CLINICAL HISTORY: 46 years-old Female presenting with rle swelling . TECHNIQUE: Real-time grayscale and color and spectral Doppler ultrasound imaging of the veins of the right lower extremity was performed. Compression and augmentation were also utilized. COMPARISON: 07/18/2012.. FINDINGS: Right: Common femoral vein: Patent. Greater saphenous vein: Patent. Deep femoral vein: Patent. Femoral vein: Patent. Popliteal vein: Patent. Calf veins: Patent. Other: None. IMPRESSION: No evidence of deep venous thrombosis. Electronically signed by: Michael Jessica M.D. 04/20/2017 10:10 PM Dictated Date/Time: 04/20/2017 10:09 PM
--- NOTE | 2017-04-20 22:31 | DIAGNOSTIC IMAGING REPORT ---
R KNEE 3 VIEWS CLINICAL HISTORY: 46 years-old Female presenting with r knee pain . TECHNIQUE: Frontal, lateral, and sunrise views of the right knee were obtained. COMPARISON: None. FINDINGS: No acute fracture or malalignment. No dense degenerative change. Trace knee joint effusion. No patellar subluxation. IMPRESSION: No acute osseous injury of the right knee. Electronically signed by: Michael Jessica M.D. 04/20/2017 10:29 PM Dictated Date/Time: 04/20/2017 10:29 PM
[2017-04-20 22:55] VITALS: BP 145/87; PULSE 87; TEMP 36.7; O2SAT 97
--- NOTE | 2017-04-20 23:30 | EMERGENCY ROOM VISIT NOTE ---
History Report prepared by Kisha: Ana Rosa Leigh Under the Supervision of: Dr. Adonay Cruz D.O. First contact with patient: 19:49 Chief Complaint: LEG PAIN,LEG INJURY Stated Complaint: ABD LABS, PCP OFFICE TOLD HER TO COME IN History of Present Illness The patient is a 46 year old female who presents to the Emergency Room with complaints of persistent joint pain that began a few days ago. The patient states that she was recently put on Ceftin after being diagnosed with sinusitis and bronchitis. She notes that the antibiotics caused her joints to stiff up, which led her PCP to put her on stronger antibiotics. The patient states that she is having trouble holding up objects or walking, secondary to pain. She notes that her joints hurt more when she puts weight on it, noting it does not hurt with bending. The patient states that her pain has been radiating through her body, noting it is worse on the right side. She notes that she had a d- dimer performed today, which came back high. Pt denies taking blood thinners, headache, change in vision, fevers, chest pain, shortness of breath, nausea, vomiting, diarrhea, pain with urination, and melena. Patient denies diabetes, hypertension, hyperlipidemia, CAD, and smoking. Patient denies swelling of calves, recent trips, history of immobilization or recent surgery, prior history of DVT, hemoptysis, history of malignancy, or control/estrogen use. Source of History: patient Onset: few days ago Position: other (global) Quality: other (joint pain) Timing: other Review of Systems See HPI for pertinent positives & negatives. A total of 10 systems reviewed and were otherwise negative. Past Medical & Surgical Medical Problems: (1) Diabetes (2) Hypertension Family History Cancer (breast, colon, skin, ovarian, pancreatic) Diabetes mellitus FH: heart disease Hypertension Myocardial infarction Social History Smoking Status: Never Smoker Alcohol Use: occasionally Drug Use: none Marital Status: Occupation Status: other Current/Historical Medications Scheduled Cetirizine (Zyrtec), 10 MG PO HS Cholecalciferol (Vitamin D3), 5,000 UNIT PO QPM Dexlansoprazole (Dexilant), 1 TAB PO QAM Levofloxacin (Levaquin), 500 MG PO DAILY Lisinopril (Lisinopril), 2.5 MG PO QPM Lysine Hcl (L-Lysine), 500 MG PO QAM Metformin Hcl (Glucophage), 500 MG PO BID Methylprednisolone (Medrol), 4 MG PO UD Multiple Vitamin (Multivitamin), 1 TAB PO QPM Nortriptyline Hcl (Pamelor), 75 MG PO HS Ranitidine Hcl (Ranitidine Hcl), 1 CAP PO HS Topiramate (Topamax), 200 MG PO BID Verapamil Sust Rel (Calan Sr Ext Rel), 240 MG PO QAM Scheduled PRN Acetaminophen Tab (Tylenol), 325 MG PO Q4H PRN for Migraine Albuterol Hfa (Ventolin Hfa), 2 PUFFS INH Q6H PRN for SOB/Wheezing Albuterol Sulf (Proventil 0.083% 2.5MG/3ML), 2.5 MG INH QID PRN for SOB/Wheezing Ghdfxbl-Khwmxjnkdehqc-Zbwhazkz (Excedrin Migraine), 1 TAB PO TID-QID PRN for Migraine Sumatriptan-Naproxen Sodium (Treximet 10-60 mg), 1 TAB PO UD PRN for Migraine Allergies Coded Allergies: Sulfa Drugs (Verified Allergy, Mild, TONGUE PEELS, 11/16/16) Adhesives (Verified Allergy, Unknown, SKIN IRRITATION/SENSITIVITY, 11/16/16 ) Cefuroxime (Verified Allergy, Unknown, UNKNOWN, 04/20/17) Latex1 -Allergic Contact Dermititis (Verified Allergy, Unknown, SKIN IRRITATION, 11/16/16) Metoclopramide (Verified Adverse Reaction, Unknown, HIVES AND ARTHRITIS SYMPTOMS, 11/16/16) Physical Exam Vital Signs Date Time Temp Pulse Resp B/P (MAP) Pulse Ox O2 Delivery O2 Flow Rate FiO2 04/20/17 22:55 36.7 87 18 145/87 97 04/20/17 21:36 87 18 143/91 97 Room Air 04/20/17 19:46 36.7 123 18 155/89 97 Room Air Physical Exam GENERAL: Sitting up in bed, alert, well appearing, well nourished, no distress, non-toxic EYE EXAM: normal conjunctiva. PERRL and EOM's grossly intact. OROPHARYNX: no exudate, no erythema, lips, buccal mucosa, and tongue normal and mucous membranes are moist NECK: supple, no nuchal rigidity, no adenopathy, non-tender LUNGS: Clear to auscultation. Normal chest wall mechanics HEART: no murmurs, S1 normal and S2 normal ABDOMEN: abdomen soft, non-tender, normo-active bowel sounds, no masses, no rebound or guarding. BACK: Back is symmetrical on inspection and there is no deformity, no midline tenderness, no CVA tenderness. SKIN: No erythema or rashes or swelling or tenderness. UPPER EXTREMITIES: Full range of motion of all joints without tenderness. LOWER EXTREMITIES: Full range of motion of all joints without tenderness. NEURO EXAM: Normal sensorium, cranial nerves II-XII grossly intact, normal speech, no gross weakness of arms, no gross weakness of legs. Medical Decision & Procedures ER Provider Diagnostic Interpretation: Radiology results as stated below per my review and the radiologist's interpretation: R KNEE 3 VIEWS CLINICAL HISTORY: 46 years-old Female presenting with r knee pain . TECHNIQUE: Frontal, lateral, and sunrise views of the right knee were obtained. COMPARISON: None. FINDINGS: No acute fracture or malalignment. No dense degenerative change. Trace knee joint effusion. No patellar subluxation. IMPRESSION: No acute osseous injury of the right knee. Electronically signed by: Michael Jessica M.D. 04/20/2017 10:29 PM Dictated Date/Time: 04/20/2017 10:29 PM R VENOUS DOPP LOWER EXT UNILAT CLINICAL HISTORY: 46 years-old Female presenting with rle swelling . TECHNIQUE: Real-time grayscale and color and spectral Doppler ultrasound imaging of the veins of the right lower extremity was performed. Compression and augmentation were also utilized. COMPARISON: 07/18/2012.. FINDINGS: Right: Common femoral vein: Patent. Greater saphenous vein: Patent. Deep femoral vein: Patent. Femoral vein: Patent. Popliteal vein: Patent. Calf veins: Patent. Other: None. IMPRESSION: No evidence of deep venous thrombosis. Electronically signed by: Michael Jessica M.D. 04/20/2017 10:10 PM Dictated Date/Time: 04/20/2017 10:09 PM (CHEST FOR PE) ANGIO WITH CLINICAL HISTORY: 46 years-old Female presenting with ^+dd and cp. TECHNIQUE: Multidetector CT angiography of the chest was performed after administration of intravenous contrast. 3-D volumetric and/or maximum intensity projection (MIP) images were subsequently reconstructed for review. IV contrast: 77 mL of Optiray 320. A dose lowering technique was used consistent with the principles of ALARA (as low as reasonably achievable). COMPARISON: Chest x-ray performed earlier the same day. CT DOSE (mGy.cm): The estimated cumulative dose is 610.58 mGy.cm. FINDINGS: Clerical Coordinator topogram: Unremarkable. Pulmonary vasculature: The study is suboptimal for the assessment of the pulmonary vascular tree secondary to the timing of the contrast bolus. Allowing for this, no filling defect within main, lobar, or segmental pulmonary arteries. Evaluation of subsegmental pulmonary arteries limited. Main pulmonary artery is not enlarged. No flattening of the interventricular septum. No intracardiac intracardiac filling defect. No reflux of contrast into the hepatic veins. Remaining chest: On soft tissue windows, normal thyroid and thoracic inlet. No axillary, supraclavicular, hilar, or mediastinal lymphadenopathy. Normal aorta. Normal heart size. No pericardial or pleural effusion. Upper abdomen normal. On lung windows, Mosaic attenuation prominently throughout the lungs could suggest small airways disease. No superimposed focal infiltrate. No interlobular septal thickening. Mild bronchial wall thickening. Large airways patent. On bone windows, normal osseous structures. IMPRESSION: 1. No evidence of pulmonary embolus. 2. Prominent mosaic attenuation suggest small airways disease or less likely a vascular etiology. Mild bronchial wall thickening also noted, which is nonspecific and could be seen in the setting of reactive airways disease, bronchiolitis, or congestive change. Electronically signed by: Michael Jessica M.D. 04/20/2017 9:00 PM Dictated Date/Time: 04/20/2017 8:52 PM CHEST ONE VIEW PORTABLE CLINICAL HISTORY: 46 years-old Female presenting with Chest Pain. TECHNIQUE: Portable upright AP view of the chest was obtained. COMPARISON: 09/28/2016. FINDINGS: Atherosclerosis of aortic arch. Cardiac silhouette top normal in size allowing for AP technique. Mildly low lung volumes with hypoventilatory changes. Lungs and pleural spaces otherwise clear. Osseous structures normal. Upper abdomen normal. IMPRESSION: 1. Mildly low lung volumes with hypoventilatory changes. Otherwise no acute cardiopulmonary disease. Electronically signed by: Michael Jessica M.D. 04/20/2017 8:21 PM Dictated Date/Time: 04/20/2017 8:19 PM Laboratory Results 04/20/17 20:30 Red Blood Count 4.48, Mean Corpuscular Volume 89.7, Mean Corpuscular Hemoglobin 30.1, Mean Corpuscular Hemoglobin Concent 33.6, Mean Platelet Volume 10.5, Neutrophils (%) (Auto) 84.6, Lymphocytes (%) (Auto) 11.1, Monocytes (%) (Auto) 3.4, Eosinophils (%) (Auto) 0.6, Basophils (%) (Auto) 0.1, Neutrophils # (Auto) 8.48, Lymphocytes # (Auto) 1.11, Monocytes # (Auto) 0.34, Eosinophils # (Auto) 0.06, Basophils # (Auto) 0.01 04/20/17 20:30 Test 04/20/17 20:30 04/20/17 20:38 White Blood Count 10.02 K/uL (4.8-10.8) Red Blood Count 4.48 M/uL (4.2-5.4) Hemoglobin 13.5 g/dL (12.0-16.0) Hematocrit 40.2 % (37-47) Mean Corpuscular Volume 89.7 fL (80-100) Mean Corpuscular Hemoglobin 30.1 pg (25-34) Mean Corpuscular Hemoglobin Concent 33.6 g/dl (32-36) Platelet Count 227 K/uL (130-400) Mean Platelet Volume 10.5 fL (7.4-10.4) Neutrophils (%) (Auto) 84.6 % Lymphocytes (%) (Auto) 11.1 % Monocytes (%) (Auto) 3.4 % Eosinophils (%) (Auto) 0.6 % Basophils (%) (Auto) 0.1 % Neutrophils # (Auto) 8.48 K/uL (1.4-6.5) Lymphocytes # (Auto) 1.11 K/uL (1.2-3.4) Monocytes # (Auto) 0.34 K/uL (0.11-0.59) Eosinophils # (Auto) 0.06 K/uL (0-0.5) Basophils # (Auto) 0.01 K/uL (0-0.2) RDW Standard Deviation 44.1 fL (36.4-46.3) RDW Coefficient of Variation 13.5 % (11.5-14.5) Immature Granulocyte % (Auto) 0.2 % Immature Granulocyte # (Auto) 0.02 K/uL (0.00-0.02) Est Creatinine Clear Calc Drug Dose 104.3 ml/min Estimated GFR () 91.3 Estimated GFR (Non- 78.8 BUN/Creatinine Ratio 15.9 (10-20) Calcium Level 8.8 mg/dl (8.5-10.1) Total Creatine Kinase 87 U/L (26-192) Creatine Kinase MB 0.6 ng/ml (0.5-3.6) Creatine Kinase MB Ratio 0.7 (0-3.0) Troponin I < 0.015 ng/ml (0-0.045) Bedside Hemoglobin 13.3 g/dl (12.0-16.0) Bedside Hematocrit 39 % (37-47) Bedside Sodium 141 mEq/L (135-144) Bedside Potassium 3.4 mEq/L (3.3-5.0) Bedside Chloride 109 mEq/L (101-112) Bedside Total CO2 19 mEq/l (24-31) Anion Gap 17.0 mmol/L (16-25) Bedside Blood Urea Nitrogen 12 mg/dl (7-18) Bedside Creatinine 0.8 mg/dl (0.6-1.3) Bedside Glucose (other) 106 mg/dl (70-99) Bedside Ionized Calcium (Anayeli) 1.21 mmol/l (1.12-1.32) Laboratory results per my review. ED Course ED COURSE: Vital signs were reviewed and showed normal vitals. The patients medical record was reviewed The above diagnostic studies were performed and reviewed. ED treatments and interventions as stated above. 1953: The patient was evaluated in room A4. A complete history and physical examination was performed. 2015: Ordered Ioversol 111ml IV. 9: I reevaluated the patient, she states that she is feeling better. I discussed the test findings with her. She verbalized complete understanding and agreement. The patient will be discharged home. Medical Decision Differential diagnosis: Etiologies such as fracture, dislocation, neurovascular compromise, compartment syndrome, soft tissue injury, as well as others were entertained. The patient is a 46 year old female who presents to the ED with complaints of joint pain. Patient is that she was recently being treated for bronchitis with antibiotics. Following this she started to have diffuse myalgias. This involves specifically her hands, right knee and ankle. She does have this throughout her entire body. Vitals are unremarkable. CBC all BMP and troponin was negative. Patient was sent in with positive d-dimer. CTA was performed and suggest a possible bronchitis which I favor is improving based on her symptoms. Ultrasound of the right lower shoulder was negative. Chest x-ray and x-ray of the knee was negative. Patient was updated bedside. She is discharged follow-up with her PCP for likely postviral arthralgias/myalgias. Discussed with Pt concerning signs and symptoms to watch out for. Pt was instructed to follow up with their PCP and discussed with the patient their option to return to the ED at anytime for persistent or worsening symptoms. The appropriate anticipatory guidance and out-patient management, including indications for return to the emergency department, were explained at length to the patient and understood. Medication Reconcilliation Current Medication List: was personally reviewed by me Blood Pressure Screening Patient's blood pressure: Normal blood pressure Impression Primary Impression: Arthralgia Additional Impressions: Myalgia Bronchitis Scribe Attestation The scribe's documentation has been prepared under my direction and personally reviewed by me in its entirety. I confirm that the note above accurately reflects all work, treatment, procedures, and medical decision making performed by me. Departure Information Dispostion Home / Self-Care Referrals Brandon Lawrence M.D. (PCP) Forms HOME CARE DOCUMENTATION FORM, IMPORTANT VISIT INFORMATION Patient Instructions My [facility] Additional Instructions Please follow up with your primary care doctor with in the next 24 hours. Any worsening of your symptoms, please return to the ED immediately. This includes any fevers greater than 100.4, worsening pain, chest pain, redness of the joint , increased swelling of the joint, unable to move the joint, shortness breath, persistent nausea, vomiting, unable to eat or drink, or any other concerning signs or symptoms from your standpoint. Please take Motrin or Tylenol as needed for pain. Problem Qualifiers Primary Impression: Arthralgia Joint pain location: unspecified Qualified Codes: M25.50 - Pain in unspecified joint
== END 2017-04-20 22:56 | disposition home or self-care (01) ==
LOC: C.EDB 19:45 → C.EDA 22:56
DX: M25.50 Pain in unspecified joint (principal); M79.1 Myalgia; J40 Bronchitis, not specified as acute or chronic; E11.9 Type 2 diabetes mellitus without complications; I10 Essential (primary) hypertension; Z83.3 Family history of diabetes mellitus; Z82.49 Family history of ischemic heart disease and other diseases of the circulatory system

== ENCOUNTER → 2017-04-20 | Outpatient (CLI) | payer OTHER ==
[~2017-04-20] MED LIST changes: +LEVO1TAB33 PO; +METH1TAB81 PO
== END | disposition home or self-care (01) ==
LOC: C.LAB1850 15:46
PROVIDERS: ATTEND Internal Medicine
DX: M79.604 Pain in right leg (principal)

== ENCOUNTER → 2017-04-20 | Outpatient (CLI) | payer OTHER ==
[~2017-04-20] MED LIST changes: +ACET-1693 PO; -ACET325T96 PO; +LISI-1116 PO; -LISI2.5T5 PO
== END | disposition home or self-care (01) ==
LOC: C.PAPS 09:26
PROVIDERS: ATTEND Physician Assistant
DX: Z12.4 Encounter for screening for malignant neoplasm of cervix (principal)

== ENCOUNTER → 2017-04-26 | Outpatient (CLI) | payer OTHER ==
[~2017-04-26] MED LIST changes: +LEVO1TAB33 PO; +METH1TAB81 PO
== END | disposition home or self-care (01) ==
LOC: C.LAB 16:49
PROVIDERS: ATTEND Internal Medicine
DX: M25.50 Pain in unspecified joint (principal)

== ENCOUNTER → 2017-05-24 | Outpatient (CLI) | payer OTHER ==
[~2017-05-24] MED LIST changes: -ACET-1693 PO; +ACET325T96 PO; -LISI-1116 PO; +LISI2.5T5 PO; -TRAM-10 PO
--- NOTE | 2017-05-24 15:23 | MAMMOGRAPHY REPORT ---
BILATERAL DIGITAL SCREENING MAMMOGRAM TOMOSYNTHESIS WITH CAD: 05/24/2017 CLINICAL HISTORY: Routine screening. The patient has no current complaints. TECHNIQUE: Breast tomosynthesis in addition to standard 2D mammography was performed. Current study was also evaluated with a Computer Aided Detection (CAD) system. COMPARISON: Comparison is made to exams dated: 05/11/2016 mammogram, 05/08/2015 mammogram, 04/30/2015 ma mmogram, 04/21/2014 mammogram, 01/24/2013 mammogram, and 08/25/2011 mammogram - [facility] nter. BREAST COMPOSITION: There are scattered areas of fibroglandular density in both breasts. FINDINGS: No suspicious masses, calcifications, or areas of architectural distortion are noted in ei ther breast. There has been no significant interval change compared to prior exams. IMPRESSION: ACR BI-RADS CATEGORY 1: NEGATIVE There is no mammographic evidence of malignancy. A 1 year screening mammogram is recommended. The pa tient will receive written notification of the results. Approximately 10% of breast cancers are not detected with mammography. A negative mammographic report should not delay biopsy if a clinically suggestive mass is present. Arianna Husain M.D. ah/:05/24/2017 11:25:29 Agriculture Consultant: Zonia EVERETT(Olivia)(M), [facility] letter sent: Normal 1/2 BI-RADS Code: ACR BI-RADS Category 1: Negative
== END | disposition home or self-care (01) ==
LOC: C.MAMM 10:56
PROVIDERS: ATTEND Physician Assistant
DX: Z12.31 Encounter for screening mammogram for malignant neoplasm of breast (principal)

== ENCOUNTER → 2017-08-25 | Outpatient (CLI) | payer OTHER ==
[~2017-08-25] MED LIST changes: +ACET-1693 PO; -ACET325T96 PO; +LISI-1116 PO; -LISI2.5T5 PO
[2017-08-25 14:09] LABS: ALT/SGPT 20 U/L (12-78); AST/SGOT 10 U/L (15-37); BLOOD UREA NITROGEN 16 mg/dl (7-18); CALCIUM 9.1 mg/dl (8.5-10.1); CARBON DIOXIDE 24 mmol/L (21-32); CHOLESTEROL 207 mg/dl (0-200); CREATININE 0.98 mg/dl (0.60-1.20); GLUCOSE 100 mg/dl (70-99); SODIUM 141 mmol/L (136-145)
[2017-08-25 14:13] LABS: LDL CHOLESTEROL CALCULATED 123 mg/dl
== END | disposition home or self-care (01) ==
LOC: C.LABPVFM 11:17
PROVIDERS: ATTEND Internal Medicine
DX: I10 Essential (primary) hypertension (principal); E78.5 Hyperlipidemia, unspecified; R73.01 Impaired fasting glucose